=== PATIENT | male | born 1955 | race Caucasian/White ===

== ENCOUNTER → 2016-05-14 | Outpatient (CLI) | payer BC ==
[2016-05-14 11:56] LABS: EKG EKG PERFORMED
[2016-05-14 12:49] LABS: Partial Thromboplastin Time 23.6 sec (22.0-30.0); Prothrombin Time 10.2 sec (9.0-12.0)
[2016-05-14 12:53] LABS: Basophils % (A) 1 %; CH 31.3; CHCM 33.4; Eosinophils # (A) 0.3 k/uL (0-0.7); Eosinophils % (A) 6 %; HCT 42.7 % (39.0-53.0); HDW 2.71; Luc # (Auto) 0.11; Luc % (Auto) 3; Lymphocytes % (A) 24 %; MCH 30.8 pg (25.0-35.0); MCHC 32.7 g/dL (31.0-37.0); MCV 94.1 fL (80.0-100.0); Mean Platelet Volume 7.3; Monocytes # (A) 0.4 k/uL (0-1.0); Monocytes % (A) 9 %; Neutrophils # (A) 2.4 k/uL (1.3-7.7); Neutrophils % (A) 58 %; RBC 4.54 m/uL (4.30-5.90); RDW 13.1 % (11.5-15.5); WBC 4.2 k/uL (3.8-10.6); WBC (Perox) 4.52
[2016-05-14 13:00] LABS: ALT 41 U/L (21-72); AST 24 U/L (17-59); Alkaline Phosphatase 86 U/L (38-126); Anion Gap 7 mmol/L; Blood Urea Nitrogen 14 mg/dL (9-20); Calcium 9.1 mg/dL (8.4-10.2); Carbon Dioxide 31 mmol/L (22-30); Chloride 100 mmol/L (98-107); Glucose 102 mg/dL (74-99); Non-African American GFR(MDRD) >60 (>60 ml/min/1.73 sqM); Potassium 4.4 mmol/L (3.5-5.1); Sodium 138 mmol/L (137-145); Total Bilirubin 0.6 mg/dL (0.2-1.3); Total Protein 6.6 g/dL (6.3-8.2)
[2016-05-14 14:03] LABS: Appearance,Urine Clear (Clear); Bilirubin,Urine Negative (Negative); Glucose,Urine (UA) Negative (Negative); Ketones,Urine Negative (Negative); Leukocyte Esterase,Urine Negative (Negative); Nitrite,Urine Negative (Negative); PH, Urine 7.5 (5.0-8.0); Protein,Urine Negative (Negative); Specific Gravity,Urine 1.012 (1.001-1.035); UA Billing (MACRO vs. MICRO) CHEM; Urobilinogen,Urine <2.0 mg/dL (<2.0)
== END | disposition home or self-care (01) ==
LOC: LABPAT 11:28
PROVIDERS: ATTEND Orthopaedic Surgery
DX: Z01.810 Encounter for preprocedural cardiovascular examination (principal); Z01.812 Encounter for preprocedural laboratory examination
CPT/HCPCS: 80053; 81003; 85025; 85610; 85730; 87070; 93005

== ENCOUNTER 2016-05-27 06:31 | Inpatient (IN) | payer BC ==
[~2016-05-27 06:31] MED LIST: ACETAMINOPHEN TAB 500 MG TAB PO ONE; FAMOTIDINE 20 MG/2 ML VIAL IV PRN; HYDROmorphone 1 MG/ML 1 ML SYRINGE IVP PRN; LACTATED RINGERS 1,000 ML IV SCH; LIDOCAINE 1% 20 ML VIAL (10MG/ML) FOR IV START INTRADERMA PRN; MELOXICAM 7.5 MG TAB PO ONE; MIDAZOLAM 2 MG/2 ML VIAL IV PRN; ONDANSETRON 4 MG/2 ML VIAL IVP ONE; TRANEXAMIC ACID 1,000 MG in SODIUM CHLORIDE 0.9% 100 ML IVPB ONE; ceFAZolin 2 GM in SODIUM CHLORIDE 0.9% 100 ML IVPB ONE
[2016-05-27 06:52] VITALS: RESP 16
[2016-05-27] MEDS ORDERED: LIDOCAINE 1% 20 ML VIAL (10MG/ML) FOR IV START INTRADERMA ONE (07:07)
[2016-05-27] MEDS ORDERED: GLYCOPYRROLATE 0.2 MG/ML 2 ML VIAL ONE (07:38)
[2016-05-27] MEDS ORDERED: PHENYLEPHRINE-0.9% NACL SYG 1 MG/10 ML SYRINGE ONE (07:38)
[2016-05-27] MEDS ORDERED: TRANEXAMIC ACID 1,000 MG/10 ML VIAL ONE (07:38)
[2016-05-27] MEDS ORDERED: MIDAZOLAM 2 MG/2 ML VIAL ONE (07:38)
[2016-05-27] MEDS ORDERED: SODIUM CHLORIDE 0.9% 100 ML BAG ONE (07:38)
[2016-05-27] MEDS ORDERED: fentaNYL (PF) 50 MCG/ML 2 ML AMP ONE (07:38)
[2016-05-27] MEDS ORDERED: LIDOCAINE 1% INJ 10MG/ML (20 ML MDV) ONE (07:38)
[2016-05-27] MEDS ORDERED: ceFAZolin 3,000 MG in SODIUM CHLORIDE 0.9% IRRIGATIO 3,000 ML IRRIGATION ONE (07:38)
[2016-05-27] MEDS ORDERED: PROPOFOL 10 MG/ML 20 ML VIAL IV ONE (07:38)
[2016-05-27] MEDS ORDERED: KETAMINE 10 MG/ML 20 ML VIAL ONE (07:38)
[2016-05-27] MEDS: ROPIVACAINE 246.25 MG, EPINEPHrine 0.5 MG, KETOROLAC 30 MG, cloNIDine HCL/PF 80 MCG, WA... MISCELLANE STA ×10 (08:08→09:00)
[2016-05-27] MEDS ORDERED: LACTATED RINGERS 1,000 ML IV ONE (08:39)
--- NOTE | 2016-05-27 09:47 | P.OP ---
Date of Procedure: 05/27/16 Procedure(s) Performed: PREOPERATIVE DIAGNOSIS: 1. Right knee severe osteoarthritis with genu varum 2. Left knee severe osteoarthritis with knee effusion POSTOPERATIVE DIAGNOSIS: 1. Right knee severe osteoarthritis with genu varum 2. Left knee severe osteoarthritis with knee effusion OPERATION: 1. Right knee cemented total replacement arthroplasty. 2. Left knee aspiration of joint fluid (88 mL clear yellow) ANESTHESIA: Spinal ESTIMATED BLOOD LOSS: 100 ml. DIVIDEND DEPOSIT ENTRY CLERK: Nati Haney PA-C (assistance with: patient positioning, retraction, exposure, hemostasis, leg positioning, implantation, irrigation, closure, dressing) COMPLICATIONS: None apparent. COMPONENTS IMPLANTED: Persona system from [employer] INDICATIONS: Mr. Rodriguez is a 61-year-old male with a history of bilateral knee osteoarthritis. The patient's knees are end-stage, and conservative management has failed. The operation of right knee replacement and aspiration of the left knee has been discussed at length in the office, as well as potential risks and complications. These are inclusive of, but not limited to: bleeding, infection, scarring, discomfort, blood vessel and nerve damage, need for further surgery, failure to relieve symptoms, persistence, recurrence, or worsening of problems, loosening, dislocation, wear, blood clot, pulmonary embolism, , gait dysfunction, stiffness, and other risks as discussed in the office. The patient elects to proceed and the consent form has been signed. PROCEDURE: The patient was taken to the operating room and positioned on the operating room table in the supine position. Anesthesia was initiated. Care was taken to make sure that all pressure points were adequately padded. The operative lower extremity was prepped and draped in the usual aseptic fashion using ChloraPrep. Ioban drape was used for the case and the patient received intravenous antibiotics within one hour of the incision. A pneumotourniquet and leg junior were used for the case. The limb was exsanguinated with an Esmarch bandage and the tourniquet was inflated to 350 mmHg. Time-out was called confirming the patient's identity, side, procedure and administration of antibiotics. The incision was then created midline directly over the knee, carried down through skin and into the subcutaneous tissues and down to fascia. Full thickness subcutaneous medial flap was developed. Medial parapatellar arthrotomy was performed and the interior of the knee was inspected. There was end-stage osteoarthritis of the knee with a mild to moderate genu varum type deformity. The fat pad was excised and proximal medial release on the tibia was completed using meticulous dissection and a curved osteotome. The anterior cruciate ligament was taken down. Note was made of significant attrition of the anterior and significant degenerative appearance of the posterior cruciate ligaments. The exposure was excellent. The knee was flexed 90 degrees and the patella was everted. A spot was chosen on the femur approximately 1 cm anterior to the posterior cruciate ligament insertion and an intramedullary hole was created within the femur. The intramedullary guide was then set to 5 degrees of valgus. The distal cutting block was attached and pinned into position. An appropriate amount of distal femoral resection was set. The oscillating saw was then used to make the distal femoral cut. This cut was confirmed to be flat with the flat end of an osteotome. The retractors were placed around the tibia and the tibial surface was addressed. The angle and depth of resection was adjusted using an extramedullary cutting guide. The guide had a built-in 3 degree posterior slope cut. Once the cutting guide was adjusted appropriately and in line with the axis of the tibia and confirmed to be in good position in relation to the second metatarsal and transmalleolar axis, the tibial cut was then created with protection of the posterior neurovascular structures and the collateral ligaments. The tibial cut surface was removed and sized. Femoral sizing was then accomplished using anterior referencing. Care was taken to analyze the posterior condyles for signs of deficiency or severe wear, and adjustments to the guide were made, as appropriate. 3 degree external rotation pins were placed. The cutting jig for the femur was applied to these pins. The planned cuts were further analyzed prior to performing them with the oscillating saw. No femoral notching was produced. Bone fragments were removed and the cut surfaces were finished, as necessary, with a reciprocating saw. Spacer block technique was then used to confirm that the flexion and extension gaps were equal. Soft tissue releases and adjustment of the tibial and/or femoral cuts were made, as necessary, until the gaps were equal. This included release of the posterior cruciate ligament, which was tight in this patient and , if left unreleased, would have resulted in poor kinematics and possibly early loosening. The femur was then further finished for a posterior cruciate ligament substituting component. Patellar resurfacing was performed using a reamer. The size of the required patellar component was estimated and the patellar surface was then reamed down to a residual thickness which would recreate the [place] thickness with the component. The placement of the patellar component was influenced by the degree of patellar subluxation, if any, noted on the preoperative x-rays. Prior to placing trial components, anesthetic solution consisting of ropivicaine with epinephrine, ketorolac, and clonidine was injected carefully and methodically in a grid pattern using aspiration technique into the soft tissue around the knee circumferentially, starting with the deeper tissues first and progressing to fascia, and then finally the skin/subcutaneous tissue. Particular care was taken when injecting the posterior capsule. The trial components were inserted. The tibial tray was allowed to self center and the patella was noted to track very well. The position of the tibial component was marked and the tibia was then finished for a stemmed tibial component. Cement was mixed on the back table and applied to the final components. Trial components were removed and the cut surfaces of the bone were pulse lavaged thoroughly and dried. Cement was then applied to the tibial surface and pressurized into the surface using finger pressurization technique. The tibial component was then applied and excess cement was removed after it was impacted securely and noted to be flush with the cut surface. In similar fashion, the cement was applied to the cut femoral surface, pressurized in using finger pressurization and the component was impacted into place. Excess cement was removed. The polyethylene spacer was then implanted and locked into position. The patellar component was then applied in similar technique and a patellar clamp was used to hold the patella in place as the cement hardened. Once the cement had fully hardened, the knee was reinspected. Any other cement extrusion was removed and final kinematic testing showed range of motion from 0 to 130 degrees with excellent stability, both medially and laterally and appropriate alignment of the leg. Patellar tracking was excellent. The knee was then thoroughly pulse lavaged with normal saline. The tourniquet was deflated and hemostasis was obtained with electrocautery and IV tranexamic acid, 1 g given at the start of the operation and 1 g at the start of closure. Closure was with #2 Ethibond in the fascia/capsule and supplemented with #2 Quill, 2-0 Vicryl suture was used for the subcutaneous tissues and 3-0 Quill for the skin. Dermabond/Steri-Strips were then applied. A lightly compressive dressing was applied using Webril and an Noah wrap. Aspiration of the left knee was then accomplished easily using a lateral approach with an 18-gauge needle under sterile conditions with a Betadine prep. 88 mL of clear yellow fluid was removed. Band-Aid was applied to the puncture site. [facility] and taken to the recovery room in stable condition. Sponge and needle counts were correct.
[2016-05-27] MEDS ORDERED: NALOXONE 0.4 MG/ML 1 ML VIAL IV PRN (09:53)
[2016-05-27] MEDS ORDERED: HYDROmorphone 1 MG/ML 1 ML SYRINGE IVP PRN ×2 (09:53)
[2016-05-27] MEDS ORDERED: ONDANSETRON 4 MG/2 ML VIAL IVP PRN (09:53)
[2016-05-27] MEDS ORDERED: HYDROcodone/APAP 5-325MG 1 EACH TAB PO PRN (09:53)
[2016-05-27] MEDS ORDERED: TEMAZEPAM 15 MG CAP PO PRN (09:53)
[2016-05-27] MEDS ORDERED: hydrOXYzine PAMOATE 25 MG CAP PO PRN (09:53)
[2016-05-27] MEDS ORDERED: ACETAMINOPHEN TAB 325 MG TAB PO PRN (09:53)
[2016-05-27] MEDS ORDERED: BISACODYL 10 MG SUPP RECTAL PRN (09:53)
[2016-05-27] MEDS ORDERED: NA PHOS,M-B/NA PHOS,DI-BA 133 ML ENEMA RECTAL PRN (09:53)
[2016-05-27] MEDS ORDERED: MAGNESIUM HYDROXIDE 2,400 MG/10 ML CUP PO PRN (09:53)
--- NOTE | 2016-05-27 10:20 | XR ---
EXAMINATION TYPE: XR knee limited RT DATE OF EXAM: 05/27/2016 10:13 AM COMPARISON: NONE HISTORY: Post op FINDINGS: There is a prosthetic knee in near anatomic alignment. There is soft tissue edema and emphysema. IMPRESSION: 1. Postoperative change. Appears in near-anatomic alignment
[2016-05-27 11:08] VITALS: BMI 29.6
[2016-05-27] MEDS: HYDROmorphone 1 MG/ML 1 ML SYRINGE IVP PRN ×2 (11:27→15:04)
[2016-05-27] MEDS ORDERED: BACLOFEN 10 MG TAB PO PRN (14:22)
[2016-05-27] MEDS: HYDROcodone/APAP 5-325MG 1 EACH TAB PO PRN ×2 (17:28→23:51)
[2016-05-27] MEDS: ceFAZolin 2 GM in SODIUM CHLORIDE 0.9% 100 ML IVPB SCH (17:29)
[2016-05-27] MEDS: LACTATED RINGERS 1,000 ML IV SCH ×2 (17:34)
--- NOTE | 2016-05-27 18:41 | CONS ---
DATE OF CONSULTATION: REASON FOR CONSULTATION: Postoperative complication management and recommendations regarding antihypertensive medications. Patient is a very pleasant 61-year-old gentleman admitted for right knee arthroplasty right knee arthroplasty and patient is clinically doing well postoperatively and patient does have history of hypertension, does use amlodipine at home. Patient's blood pressure was a bit elevated and is pain is well controlled. Patient denied fever, chills. Patient did not pass gas and did not move his bowel yet and denied any cough, runny nose. Denied any dysuria, nausea, vomiting. Patient does not have any, I do not see any Calwdell catheter. REVIEW OF SYSTEMS: CONSTITUTIONAL: No fever, no malaise, no fatigue. HEENT: No recent visual problems or hearing problems. Denied any sore throat. CARDIOVASCULAR: No chest pain, orthopnea, PND, no palpitations, no syncope. PULMONARY: No shortness of breath, no cough, no hemoptysis. GASTROINTESTINAL: No diarrhea, no nausea, no vomiting, no abdominal pain. Normoactive bowel sounds. NEUROLOGICAL: No headaches, no weakness, no numbness. HEMATOLOGICAL: Denies any bleeding or petechiae. GENITOURINARY: Denies any burning micturition, frequency, or urgency. MUSCULOSKELETAL/RHEUMATOLOGICAL: Denies any joint pain, swelling, or any muscle pain. ENDOCRINE: Denies any polyuria or polydipsia. The rest of the 14 point review of systems is negative. PAST MEDICAL HISTORY: Hypertension, gastroesophageal junction disease, orthopedic surgery in the past. Patient right now underwent right knee arthroplasty. SOCIAL HISTORY: Former smoker. Quit smoking in 2008, used to smoke 2 packs per day. Denied abuse or drug abuse. FAMILY HISTORY: Significant for cancer. Home medications include: 1. Amlodipine. 2. Baclofen. 3. Acetaminophen. 4. Senna. 5. Hydrocodone acetaminophen. PHYSICAL EXAM: Temperature 98.1, pulse of 77, respiratory rate of 16, blood pressure is 141/72, saturating at 94% on room air. GENERAL: The patient is alert and oriented x3, not in any acute distress. Well developed, well nourished. HEENT: Patient does have abscess in the peritonsillar area and redness in the posterior pharyngeal area. Pupils are round and equally reacting to light. No ear discharge. No nasal discharge. CARDIOVASCULAR: S1 and S2 present. No murmurs, rubs, or gallops. PULMONARY: Chest is clear to auscultation, no wheezing or crackles. ABDOMEN: Soft, nontender, nondistended, normoactive bowel sounds. No palpable organomegaly. MUSCULOSKELETAL: No joint swelling or deformity. EXTREMITIES: No cyanosis, clubbing, or pedal edema. NEUROLOGICAL: Gross neurological examination did not reveal any focal deficits. SKIN: No rashes . ASSESSMENT AND PLAN: 1. Right knee arthroplasty postoperative day zero, and encourage incentive spirometry, pain management and deep venous thrombosis prophylaxis as per primary service. 2. Hypertension. The patient blood pressures are a bit elevated. The patient is on amlodipine which will be continued. 3. Gastroesophageal reflux disease. Thank you for letting me participate in the patient's care. Patient's primary care physician is Dr. Olmos. CORRY
[2016-05-27] MEDS ORDERED: SENNOSIDES-DOCUSATE SODIUM 1 EACH TAB PO SCH (21:00)
[2016-05-27] MEDS: ASPIRIN 325 MG TAB PO SCH (21:58)
[2016-05-28] MEDS: HYDROmorphone 1 MG/ML 1 ML SYRINGE IVP PRN ×2 (02:17→08:13)
[2016-05-28] MEDS: ceFAZolin 2 GM in SODIUM CHLORIDE 0.9% 100 ML IVPB SCH (02:19)
[2016-05-28] MEDS: HYDROcodone/APAP 5-325MG 1 EACH TAB PO PRN (05:03)
[2016-05-28] MEDS ORDERED: PANTOPRAZOLE 40 MG TABLET PO SCH (07:30)
[2016-05-28] MEDS: ASPIRIN 325 MG TAB PO SCH (08:11)
[2016-05-28 08:24] LABS: Basophils % (A) 0 %; CH 31.2; CHCM 33.2; Eosinophils # (A) 0.3 k/uL (0-0.7); Eosinophils % (A) 5 %; HCT 33.4 % (39.0-53.0); Luc # (Auto) 0.21; Luc % (Auto) 4; Lymphocytes # (A) 0.8 k/uL (1.0-4.8); Lymphocytes % (A) 16 %; MCH 31.3 pg (25.0-35.0); MCHC 33.1 g/dL (31.0-37.0); MCV 94.5 fL (80.0-100.0); Mean Platelet Volume 6.6; Monocytes # (A) 0.6 k/uL (0-1.0); Monocytes % (A) 11 %; Neutrophils # (A) 3.4 k/uL (1.3-7.7); Neutrophils % (A) 64 %; RBC 3.53 m/uL (4.30-5.90); RDW 13.7 % (11.5-15.5); WBC 5.3 k/uL (3.8-10.6); WBC (Perox) 6.08
[2016-05-28] MEDS: LACTATED RINGERS 1,000 ML IV SCH (08:38)
[2016-05-28] MEDS ORDERED: amLODIPine 5 MG TAB PO SCH (09:00)
[2016-05-28] MEDS ORDERED: MELOXICAM 7.5 MG TAB PO SCH (09:00)
--- NOTE | 2016-05-28 09:17 | P.DS ---
Providers Date of admission: 05/27/16 06:31 Expected date of discharge: 05/28/16 Attending physician: Haresh Colbert Consults: 05/27/16 09:53 Consult Physician Routine Consulting Provider: Lindsey Victor Consult Reason/Comments: medical management Do you want consulting provider notified?: Yes Primary care physician: Guicho Olmos - Discharge Diagnosis(es) (1) Osteoarthritis of right knee Current Visit: Yes Status: Acute (2) Status post right knee replacement Current Visit: Yes Status: Acute Hospital Course: This is a pleasant 61-year-old male last seen in our office with complaints of right knee pain. Patient has known history of degenerative arthritis of the right knee and presented to discuss options. After discussion and consideration , patient elected to proceed with a total knee arthroplasty of the right knee. The patient was seen preoperatively and medically cleared for surgery by Dr. Olmos. The patient was admitted to [facility] and underwent right total knee arthroplasty on 05/27/[address] Colbert. The procedure was performed without complications or sequelae. The patient has done well postoperatively. The patient was seen and evaluated at bedside today and denies any new complaints. Pain is reasonably controlled. Dressing is clean dry and intact. Incision looks fine with no erythema or active drainage. Calf is soft and nontender. The patient has full foot and ankle motion without difficulty. Patient's right lower extremity is neurovascular intact. Patient is orthopedically stable for discharge to home today. Pertinent Studies: Laboratory Tests 05/28/16 07:41 WBC 5.3 RBC 3.53 L Hgb 11.0 L D Hct 33.4 L Patient Condition at Discharge: Stable Plan - Discharge Summary New Discharge Prescriptions: Aspirin 325 mg PO BID #120 tab HYDROcodone/APAP 5-325MG [Agate 5] 1 - 2 each PO Q4-6H PRN #90 tab PRN Reason: Pain Sennosides-Docusate Sodium [Senokot-S] 1 tab PO BID #60 tablet Discharge Medication List Acetaminophen Tab [Tylenol Tab] 650 mg PO Q4H PRN 05/21/16 [History] Baclofen 10 mg PO HS PRN 05/21/16 [History] Omeprazole 20 mg PO DAILY 05/21/16 [History] amLODIPine [Norvasc] 5 mg PO DAILY 05/21/16 [History] Aspirin 325 mg PO BID #120 tab 05/27/16 [Rx] HYDROcodone/APAP 5-325MG [Agate 5] 1 - 2 each PO Q4-6H PRN #90 tab 05/27/16 [Rx] Sennosides-Docusate Sodium [Senokot-S] 1 tab PO BID #60 tablet 05/27/16 [Rx] Follow up Appointment(s)/Referral(s): Nati Haney, PAC [PHYSICIAN SHOW OPERATIONS SUPERVISOR] - 2 Weeks Ambulatory/Diagnostic Orders: Continuous Passive Motion (CPM) Machine [DME.AMB1] Time Frame: 3 Weeks, Facility : [facility], Location: Case Management Activity/Diet/Wound Care/Special Instructions: May bear wt as tolerated with walker. CPM 5-6 hours daily. May shower if no drainage from incision. [facility] - Discharge Disposition: HOME WITH HOME HEALTH SERVICES
[2016-05-28] MEDS ORDERED: HYDROcodone/APAP 7.5-325MG 1 EACH TAB PO PRN ×2 (10:12)
[2016-05-28 10:15] VITALS: BP 130/81; PULSE 103; TEMP 98.5
[2016-05-28] MEDS ORDERED: MULTIVITAMINS, THERA 1 EACH TAB PO SCH (12:00)
--- NOTE | 2016-05-28 13:12 | P.PN ---
Subjective Date of service 05/28/2016 Personal being dictated for Dr. Hills Interval history: This a 61-year-old gentleman admitted with right knee osteoarthritis, status post right knee arthroplasty and multiple other medical issues. Complained of uncontrolled pain earlier, pain med regime adjusted as per orthopedics and currently stating pain controlled. Ambulating in hallway, tolerating increase in activity well. Positive diet intake with no nausea vomiting or diarrhea. Positive bowel movement.Maintaining O2 sats of 93% on room air and re-instructed on incentive spirometer. Afebrile. Vital signs stable. Denies chest pain, palpitations or increasing shortness of breath. Objective - Vital Signs Vital signs: Vital Signs Temp 98.5 F 05/28/16 07:00 Pulse 103 H 05/28/16 07:00 Resp 16 05/28/16 07:00 BP 130/81 05/28/16 07:00 Pulse Ox 93 L 05/28/16 07:00 Intake & Output 05/27/16 05/28/16 05/28/16 18:59 06:59 18:59 Intake Total 2001 1200 Output Total 50 Balance 1951 1200 Weight 88.451 kg Intake: IV 1602 1200 Lactated Ringers 1,000 ml 1200 @ 100 mls/hr IV .Q10H TRISTA Rx#:[id number] Oral 400 Output: Estimated Blood Loss 50 Other: Voiding Method Toilet Toilet Toilet Urinal Urinal # Voids 2 1 - Exam PHYSICAL EXAM: VITAL SIGNS: As above GENERAL: [Sitting up in chair, no acute distress] HEENT: [Pupils equal conjunctiva normal.] NECK: [Supple, no JVD] RESPIRATORY EFFORT:[Normal] LUNGS: [Essentially clear, bilateral bases diminished] CARDIOVASCULAR[regular S1 and S2, no edema] GI: [Abdomen soft, nontender, positive bowel sounds.] PSYCH: [Alert and oriented -3, mood and affect normal. NEURO: No focal deficits, moves all 4 extremities, strength and sensation grossly intact - Labs CBC & Chem 7: 05/28/16 07:41 Labs: Abnormal Lab Results - Last 24 Hours (Table) 05/28/16 Range/Units 07:41 RBC 3.53 L (4.30-5.90) m/uL Hgb 11.0 L D (13.0-17.5) gm/dL Hct 33.4 L (39.0-53.0) % Lymphocytes # 0.8 L (1.0-4.8) k/uL Assessment and Plan Plan: 1. [Right knee osteoarthritis, status post right knee arthroplasty]. 2. [Hypertension]. 3. [Gastroesophageal reflux disease]. 4. [Atelectasis]. 5. [History of nicotine abuse]. Plan: Continue on current medication regime ,monitoring and symptomatic treatment. Pain management and DVT prophylaxis as per orthopedics. Discharge planning in progress as per orthopedics. Aggressive pulmonary toileting .Patient instructed on incentive spirometer instructions for home. Follow up PCP in 1 week. The impression and plan of care has been dictated as directed. : I performed a H&P examination of this patient and discussed the same with the dictator. I agree with the dictator's note. Any additional findings/opinions/ etc. will be noted.
== END 2016-05-28 15:00 | disposition home health service (06) | DRG 470 ==
LOC: 2ORMAIN 06:31 → 3SUR 09:44
PROVIDERS: ADMIT Orthopaedic Surgery; ATTEND Orthopaedic Surgery
PROC: 0S9D3ZX Drainage of Left Knee Joint, Percutaneous Approach, Diagnostic (ICD-10-PCS; 2016-05-27)
PROC: 0SRC0J9 Replacement of Right Knee Joint with Synthetic Substitute, Cemented, Open Approach (ICD-10-PCS; principal; 2016-05-27 08:00)
DX: M17.0 Bilateral primary osteoarthritis of knee (principal); I10 Essential (primary) hypertension; M25.462 Effusion, left knee; K21.9 Gastro-esophageal reflux disease without esophagitis; M21.161 Varus deformity, not elsewhere classified, right knee; Z87.891 Personal history of nicotine dependence; Z79.899 Other long term (current) drug therapy; Z79.891 Long term (current) use of opiate analgesic
CPT/HCPCS: 85025; 88300

== ENCOUNTER → 2016-06-14 | Outpatient (CLI) | payer BC ==
--- NOTE | 2016-06-14 14:37 | US ---
EXAMINATION TYPE: US venous doppler duplex LE RT DATE OF EXAM: 06/14/2016 2:21 PM COMPARISON: NONE CLINICAL HISTORY: M25.561 PAIN IN RT KNEE, M17.11 UNI OSTEOARTHRITIS,Z47.1. Swelling and pain no h/o dvt SIDE PERFORMED: Right VESSELS IMAGED: External Iliac Vein (EIV) Common Femoral Vein Deep Femoral Vein Greater Saphenous Vein * Femoral Vein Popliteal Vein Small Saphenous Vein * Proximal Calf Veins (* superficial vessels) IMPRESSION: tech impression to office @ 2:25 No evidence for luminal thrombus. Normal compressibility and augmentation lobe. IMPRESSION: No evidence for DVT.
== END | disposition home or self-care (01) ==
LOC: RADUSWWP 14:05
PROVIDERS: ATTEND Orthopaedic Surgery
DX: I80.9 Phlebitis and thrombophlebitis of unspecified site (principal); M17.11 Unilateral primary osteoarthritis, right knee; Z47.1 Aftercare following joint replacement surgery; Z96.651 Presence of right artificial knee joint

== ENCOUNTER 2019-08-04 19:58 | Emergency (ER) | payer MEDICARE ==
[2019-08-04] MEDS ORDERED: ALBUTEROL HFA INHALER INHALATION STA (20:26)
[2019-08-04] MEDS ORDERED: SODIUM CHLORIDE 0.9% 1,000 ML IV STA ×2 (20:26)
[2019-08-04] MEDS ORDERED: methylPREDNISolone SOD SUCCI 125 MG/2 ML VIAL IV STA (20:26)
--- NOTE | 2019-08-04 20:31 | ED ---
General Adult HPI - General Chief complaint: Shortness of Breath Stated complaint: JD Time Seen by Provider: 08/04/19 20:20 Source: patient, RN notes reviewed, old records reviewed Mode of arrival: ambulatory Limitations: no limitations - History of Present Illness Initial comments: Patient is a 64-year-old male presents to the emergency department today for evaluation with difficulty in breathing shortness of breath and non productive cough for 4 days. She reports that he's had progressive dyspnea over the past few months off and on. Patient states that he is not on any current antibiotics or steroids. He denies any history of exposure to cope with Patient. He states he does see a dentist but cannot remember who he sees. He does report that he's been doing breathing treatments at home. Patient states that he's had no chest pain at this time. - Related Data Home Medications Medication Instructions Recorded Confirmed Acetaminophen Tab [Tylenol] 650 mg PO Q4H PRN 05/21/16 05/27/16 Baclofen 10 mg PO HS PRN 05/21/16 05/27/16 Omeprazole 20 mg PO DAILY 05/21/16 05/27/16 amLODIPine [Norvasc] 5 mg PO DAILY 05/21/16 05/27/16 Previous Rx's Medication Instructions Recorded Aspirin 325 mg PO BID #120 tab 05/27/16 Sennosides-Docusate Sodium 1 tab PO BID #60 tablet 05/27/16 [Senokot-S] HYDROcodone/APAP 7.5-325MG [Anson 1 - 2 each PO Q6HR PRN #90 tab 05/28/16 7.5-325] Multivitamins, Thera [Multivitamin 1 each PO DAILY@1200 #30 tab 05/28/16 (formulary)] Azithromycin [Zithromax Z-pack] 250 mg PO DIRECTED #6 tab 08/04/19 predniSONE 50 mg PO DAILY #5 tab 08/04/19 Allergies Allergy/AdvReac Type Severity Reaction Status Date / Time No Known Allergies Allergy Verified 08/04/19 20:05 Review of Systems ROS Statement: Those systems with pertinent positive or pertinent negative responses have been documented in the HPI. ROS Other: All systems not noted in ROS Statement are negative. Past Medical History Past Medical History: GERD/Reflux, Hypertension History of Any Multi-Drug Resistant Organisms: None Reported Past Surgical History: Orthopedic Surgery Additional Past Surgical History / Comment(s): RIGHT KNEE ARTHROSCOPIC, RIGHT KNEE ARTHROTOMY Past Anesthesia/Blood Transfusion Reactions: No Reported Reaction Past Psychological History: No Psychological Hx Reported Smoking Status: Former smoker Past Alcohol Use History: Daily Past Drug Use History: None Reported - Past Family History Mother Family Medical History: Cancer Father Family Medical History: Cancer General Exam - General Exam Comments Initial Comments: Pleasant 64 year old male, no distress. Limitations: no limitations General appearance: alert, in no apparent distress Head exam: Present: atraumatic, normocephalic, normal inspection Eye exam: Present: normal appearance, PERRL, EOMI. Absent: scleral icterus, conjunctival injection, periorbital swelling ENT exam: Present: normal exam, mucous membranes moist Neck exam: Present: normal inspection. Absent: tenderness, meningismus, lymphadenopathy Respiratory exam: Present: wheezes. Absent: normal lung sounds bilaterally, respiratory distress, rales, rhonchi, stridor Cardiovascular Exam: Present: regular rate, normal rhythm, normal heart sounds. Absent: systolic murmur, diastolic murmur, rubs, gallop, clicks GI/Abdominal exam: Present: soft, normal bowel sounds. Absent: distended, tenderness, guarding, rebound, rigid Psychiatric exam: Present: normal affect, normal mood Skin exam: Present: warm, dry, intact, normal color. Absent: rash Course Vital Signs 08/04/19 08/04/19 08/04/19 20:01 21:20 22:38 Temperature 98.1 F 98.2 F Pulse Rate 99 96 94 Respiratory 22 20 15 Rate Blood Pressure 149/84 137/89 133/81 O2 Sat by Pulse 93 L 98 97 Oximetry Medical Decision Making - Medical Decision Making 64 year old male with Hx copd presents with wheezing and cough worsening over the past 4 days. He reports a dry cough. Denies fevers and chest pain. EKG is normal, troponin and COVID test are negative. Patient had wheezing and a was given albuterol and iv soluemedrol. Lactic acid and WBC normal. Patient CXR shows patchy infiltrate for developing pneuomonia in R lung. Discussed treatment with rocephin and Zpak at thsi time, and steriods and continue breathing treatments. Patient and I discussed discharge vs possible admission, and he prefers to follow up with outpatient treatment. Patient is agreeable to treatment plan and return parameters discussed. - Lab Data Result diagrams: 08/04/19 20:20 08/04/19 20:20 Lab Results 08/04/19 08/04/19 08/04/19 Range/Units 20:20 20:20 20:20 WBC 6.7 (3.8-10.6) k/uL RBC 4.77 (4.30-5.90) m/uL Hgb 15.7 (13.0-17.5) gm/dL Hct 48.6 (39.0-53.0) % MCV 101.9 H (80.0-100.0) fL MCH 32.9 (25.0-35.0) pg MCHC 32.3 (31.0-37.0) g/dL RDW 14.1 (11.5-15.5) % Plt Count 261 (150-450) k/uL Neutrophils % 44 % Lymphocytes % 31 % Monocytes % 6 % Eosinophils % 15 % Basophils % 1 % Neutrophils # 3.0 (1.3-7.7) k/uL Lymphocytes # 2.1 (1.0-4.8) k/uL Monocytes # 0.4 (0-1.0) k/uL Eosinophils # 1.0 H (0-0.7) k/uL Basophils # 0.1 (0-0.2) k/uL Macrocytosis Slight PT 9.6 (9.0-12.0) sec INR 0.9 (<1.2) APTT 21.9 L (22.0-30.0) sec Sodium 143 (137-145) mmol/L Potassium 3.9 (3.5-5.1) mmol/L Chloride 103 (98-107) mmol/L Carbon Dioxide 32 H (22-30) mmol/L Anion Gap 8 mmol/L BUN 8 L (9-20) mg/dL Creatinine 0.78 (0.66-1.25) mg/dL Est GFR (CKD-EPI)AfAm >90 (>60 ml/min/1.73 sqM) Est GFR (CKD-EPI)NonAf >90 (>60 ml/min/1.73 sqM) Glucose 104 H (74-99) mg/dL Plasma Lactic Acid Ricardo (0.7-2.0) mmol/L Calcium 9.0 (8.4-10.2) mg/dL Magnesium 1.8 (1.6-2.3) mg/dL Total Bilirubin 0.2 (0.2-1.3) mg/dL AST 67 H (17-59) U/L ALT 69 H (4-49) U/L Alkaline Phosphatase 79 (38-126) U/L Lactate Dehydrogenase 523 (313-618) U/L Troponin I (0.000-0.034) ng/mL C-Reactive Protein <5.0 (<10.0) mg/L Total Protein 7.5 (6.3-8.2) g/dL Albumin 4.4 (3.5-5.0) g/dL Coronavirus (PCR) (Not Detectd) 08/04/19 08/04/19 08/04/19 Range/Units 20:20 20:20 21:00 WBC (3.8-10.6) k/uL RBC (4.30-5.90) m/uL Hgb (13.0-17.5) gm/dL Hct (39.0-53.0) % MCV (80.0-100.0) fL MCH (25.0-35.0) pg MCHC (31.0-37.0) g/dL RDW (11.5-15.5) % Plt Count (150-450) k/uL Neutrophils % % Lymphocytes % % Monocytes % % Eosinophils % % Basophils % % Neutrophils # (1.3-7.7) k/uL Lymphocytes # (1.0-4.8) k/uL Monocytes # (0-1.0) k/uL Eosinophils # (0-0.7) k/uL Basophils # (0-0.2) k/uL Macrocytosis PT (9.0-12.0) sec INR (<1.2) APTT (22.0-30.0) sec Sodium (137-145) mmol/L Potassium (3.5-5.1) mmol/L Chloride (98-107) mmol/L Carbon Dioxide (22-30) mmol/L Anion Gap mmol/L BUN (9-20) mg/dL Creatinine (0.66-1.25) mg/dL Est GFR (CKD-EPI)AfAm (>60 ml/min/1.73 sqM) Est GFR (CKD-EPI)NonAf (>60 ml/min/1.73 sqM) Glucose (74-99) mg/dL Plasma Lactic Acid Ricardo 1.9 (0.7-2.0) mmol/L Calcium (8.4-10.2) mg/dL Magnesium (1.6-2.3) mg/dL Total Bilirubin (0.2-1.3) mg/dL AST (17-59) U/L ALT (4-49) U/L Alkaline Phosphatase (38-126) U/L Lactate Dehydrogenase (313-618) U/L Troponin I <0.012 (0.000-0.034) ng/mL C-Reactive Protein (<10.0) mg/L Total Protein (6.3-8.2) g/dL Albumin (3.5-5.0) g/dL Coronavirus (PCR) Not Detected (Not Detectd) 08/04/19 20:34 Patient has EKG performed at 2014 shows normal sinus rhythm normal EKG. Jugular rate of 94 bpm. Pulse 168 ms. [facility] is 90 ms. QT QTc is 344/4:[address] elevation. - Radiology Data Radiology results: report reviewed X-ray shows right lower lung opacity. Correlate for developing pneumonia. Disposition Clinical Impression: Pneumonia, COPD (chronic obstructive pulmonary disease) Disposition: HOME SELF-CARE Condition: Good Instructions (If sedation given, give patient instructions): COPD (Chronic Obstructive Pulmonary Disease) (ED), Community Acquired Pneumonia (ED) Additional Instructions: Patient advised to take antibiotics as prescribed. Using inhalers and breathing treatments as prescribed as well. Take the entire course of antibiotic and steroid. Recommended close follow-up with primary care physician for recheck in one to 2 days as well as follow-up with dentist. Return to the emergency department if any alarming signs or symptoms occur. Prescriptions: predniSONE 50 mg PO DAILY #5 tab Azithromycin [Zithromax Z-pack] 250 mg PO DIRECTED #6 tab Is patient prescribed a controlled substance at d/c from ED?: No Referrals: Guicho Olmos MD [Primary Care Provider] - 1-2 days Time of Disposition: 22:16
[2019-08-04 21:09] LABS: Basophils # (A) 0.1 k/uL (0-0.2); Basophils % (A) 1 %; Eosinophils % (A) 15 %; HCT 48.6 % (39.0-53.0); HGB 15.7 gm/dL (13.0-17.5); Lymphocytes # (A) 2.1 k/uL (1.0-4.8); Lymphocytes % (A) 31 %; MCH 32.9 pg (25.0-35.0); MCHC 32.3 g/dL (31.0-37.0); MCV 101.9 fL (80.0-100.0); Macrocytosis Slight; Mean Platelet Volume 7.2; Monocytes # (A) 0.4 k/uL (0-1.0); Monocytes % (A) 6 %; Neutrophils % (A) 44 %; Platelet Count 261 k/uL (150-450); RBC 4.77 m/uL (4.30-5.90); RDW 14.1 % (11.5-15.5); WBC 6.7 k/uL (3.8-10.6)
[2019-08-04 21:21] VITALS: TEMP 98.2
[2019-08-04 21:23] LABS: ALT 69 U/L (4-49); AST 67 U/L (17-59); African American GFR (CKD) >90 (>60 ml/min/1.73 sqM); Albumin 4.4 g/dL (3.5-5.0); Alkaline Phosphatase 79 U/L (38-126); Anion Gap 8 mmol/L; Blood Urea Nitrogen 8 mg/dL (9-20); C Reactive Protein <5.0 mg/L (<10.0); Carbon Dioxide 32 mmol/L (22-30); Chloride 103 mmol/L (98-107); Glucose 104 mg/dL (74-99); LDH 523 U/L (313-618); Magnesium 1.8 mg/dL (1.6-2.3); Non-African American GFR(CKD) >90 (>60 ml/min/1.73 sqM); Potassium 3.9 mmol/L (3.5-5.1); Sodium 143 mmol/L (137-145); Total Bilirubin 0.2 mg/dL (0.2-1.3); Total Protein 7.5 g/dL (6.3-8.2)
[2019-08-04 21:24] LABS: INR 0.9 (<1.2); Prothrombin Time 9.6 sec (9.0-12.0)
[2019-08-04 21:26] LABS: Partial Thromboplastin Time 21.9 sec (22.0-30.0)
--- NOTE | 2019-08-04 21:33 | XR ---
EXAMINATION TYPE: XR chest 2V DATE OF EXAM: 08/04/2019 COMPARISON: 03/10/2019 HISTORY: 64 year-old male shortness of breath, difficulty breathing TECHNIQUE: PA and lateral views FINDINGS: Heart normal size. Aorta and pulmonary vasculature within normal limits. Focal opacity right lower roberto ng. No other consolidation or pleural effusion. IMPRESSION: Focal right lower lung opacity. Correlate for developing pneumonia.
[2019-08-04] MEDS ORDERED: cefTRIAXone IN SWFI 1,000 MG/10 ML SYRINGE IVP STA (21:46)
[2019-08-04 22:39] VITALS: BP 133/81; PULSE 94; RESP 15
== END 2019-08-04 22:48 | disposition home or self-care (01) ==
LOC: EC 19:58
DX: Z03.818 Encounter for observation for suspected exposure to other biological agents ruled out (principal); J44.9 Chronic obstructive pulmonary disease, unspecified; J18.9 Pneumonia, unspecified organism; I10 Essential (primary) hypertension; K21.9 Gastro-esophageal reflux disease without esophagitis; Z79.899 Other long term (current) drug therapy; Z87.891 Personal history of nicotine dependence
CPT/HCPCS: 36415; 93005; 80053; 83605; 83615; 83735; 84484; 85025; 85610; 85730; 86140; 87040; 87635; 71046; 99285; 96374; 96375; 96361 ×2; J2930; J0696

== ENCOUNTER → 2021-03-06 | Outpatient (CLI) | payer MEDICARE | END | disposition home or self-care (01) | LOC: LABWHC1 13:21 | PROVIDERS: ATTEND Internal Medicine Interventional Cardiology | DX: E05.90 Thyrotoxicosis, unspecified without thyrotoxic crisis or storm (principal) | CPT/HCPCS: 36415; 84443 ==

== ENCOUNTER 2021-11-16 09:40 | Day surgery (SDC) | payer MEDICARE ==
[2021-11-15 08:59] VITALS: BMI 26.6
[~2021-11-16 09:40] MED LIST changes: -ACETAMINOPHEN TAB 500 MG TAB PO ONE; -FAMOTIDINE 20 MG/2 ML VIAL IV PRN; -HYDROmorphone 1 MG/ML 1 ML SYRINGE IVP PRN; -LIDOCAINE 1% 20 ML VIAL (10MG/ML) FOR IV START INTRADERMA PRN; -MELOXICAM 7.5 MG TAB PO ONE; -MIDAZOLAM 2 MG/2 ML VIAL IV PRN; -ONDANSETRON 4 MG/2 ML VIAL IVP ONE; -TRANEXAMIC ACID 1,000 MG in SODIUM CHLORIDE 0.9% 100 ML IVPB ONE; -ceFAZolin 2 GM in SODIUM CHLORIDE 0.9% 100 ML IVPB ONE
[2021-11-16 10:00] VITALS: TEMP 96.6
[2021-11-16] MEDS ORDERED: LACTATED RINGERS 1,000 ML IV ONE (10:05)
[2021-11-16] MEDS ORDERED: LIDOCAINE 2% INJ 20 MG/ML (2 ML VIAL) ONE (10:55)
[2021-11-16] MEDS ORDERED: PROPOFOL 10 MG/ML 20 ML VIAL IV ONE (10:55)
--- NOTE | 2021-11-16 11:11 | P.PCN ---
Date of Procedure: 11/16/21 Procedure(s) Performed: BRIEF HISTORY: Patient is a 66-year-old pleasant white male scheduled for an elective colonoscopy as a part of positive cologuard> PROCEDURE PERFORMED: Colonoscopy with biopsy. PREOPERATIVE DIAGNOSIS: Positive cologuard. IV sedation per Anesthesia. PROCEDURE: After informed consent was obtained, the patient, was brought into the endoscopy unit. IV sedation was administered by Anesthesia under continuous monitoring. Digital rectal examination was normal. Initially the Olympus CF-160 flexible video colonoscope was then inserted in the rectum, gradually advanced into the cecum without any difficulty. Careful examination was performed as the scope was gradually being withdrawn. Ileocecal valve and the appendiceal orifice were visualized and appeared normal. Prep was excellent. Mucosa of the cecum, ascending colon, transverse colon, descending colon, sigmoid colon, and rectum appeared normal. Scattered sigmoid diverticulosis seen. In the rectum there was a 3 mm polyp that was removed by cold biopsy. Retroflexion was performed in the rectum and no lesions were seen. The patient tolerated the procedure well. IMPRESSION: 3 mm rectal polyp status post cold biopsy Scattered sigmoid diverticulosis. RECOMMENDATIONS: Findings of this examination were discussed with the patient as well as his family. He was advised to follow with the biopsy results. If the biopsy results adenoma he can have a repeat colonoscopy in 5 years.
[2021-11-16 11:16] VITALS: RESP 18
[2021-11-16 11:37] VITALS: BP 133/83; PULSE 89
== END 2021-11-16 11:50 | disposition home or self-care (01) ==
LOC: ORWHC2ENDO 09:40
PROVIDERS: ATTEND Internal Medicine Gastroenterology
DX: D12.8 Benign neoplasm of rectum (principal); K57.30 Diverticulosis of large intestine without perforation or abscess without bleeding; I10 Essential (primary) hypertension; K21.9 Gastro-esophageal reflux disease without esophagitis; M10.9 Gout, unspecified; Z87.891 Personal history of nicotine dependence; Z79.899 Other long term (current) drug therapy; Z80.9 Family history of malignant neoplasm, unspecified
CPT/HCPCS: 88305; 45380; J2704; J2001

== ENCOUNTER → 2021-12-11 | Outpatient (CLI) | payer MEDICARE ==
--- NOTE | 2021-12-11 12:56 | US ---
EXAMINATION TYPE: US venous doppler duplex LE LT DATE OF EXAM: 12/11/2021 12:42 PM COMPARISON: NONE CLINICAL HISTORY: I80.9 PHLEBITIS AND THROMBOPHLEBITIS OF UNSPECIFIE. left ankle swelling and pain, n o h/o dvt SIDE PERFORMED: Left TECHNIQUE: The lower extremity deep venous system is examined utilizing real time linear array sonog pernell with graded compression, doppler sonography and color-flow sonography. VESSELS IMAGED: Common Femoral Vein Deep Femoral Vein Greater Saphenous Vein * Femoral Vein Popliteal Vein Small Saphenous Vein * Proximal Calf Veins (* superficial vessels) Left Leg: Negative for DVT Grayscale, color doppler, spectral doppler imaging performed of the deep veins of the lower extremiti es. There is normal flow, compressibility, vascular waveforms. IMPRESSION: 1. No evidence of deep vein thrombosis of the left lower extremity. 2. Left lower intermediate subcutaneous edema.
== END | disposition home or self-care (01) ==
LOC: RADUSWWP 12:22
PROVIDERS: ATTEND Orthopaedic Surgery
DX: I80.9 Phlebitis and thrombophlebitis of unspecified site (principal); M25.472 Effusion, left ankle

== ENCOUNTER → 2022-07-30 | Outpatient (CLI) | payer MEDICARE ==
--- NOTE | 2022-07-30 22:11 | CTL ---
EXAMINATION TYPE: CT Low Dose Lung DATE OF EXAM ORDERED: 07/30/2022 HISTORY: . Lung cancer screening CT DLP: 73.[address] CTDI: 2.3 mGy Automated exposure control for dose reduction was used. SCREENING VISIT: Initial COMPARISON: TECHNIQUE: Low dose computed tomography scan was performed through the chest at 1 mm thick sections a nd reconstructed images in the coronal plane at [address] DIAGNOSTIC QUALITY: Satisfactory FINDINGS: LUNG NODULES: None. 1. There is a pleural-based 0.5 cm nodule posterior lateral left lung base. Series 4 image 195. LUNGS: COPD: Severity: Mild Fibrosis: Severity: None Lymph nodes: No enlarged lymphadenopathy. There are scattered small shotty lymph nodes within the med iastinum and axilla. Other findings: None RIGHT PLEURAL SPACE: Effusion: None Calcification: None Thickening: None Pneumothorax: None LEFT PLEURAL SPACE: Effusion: None Calcification: None Thickening: None Pneumothorax: None HEART: Heart Size: Normal Coronary calcification: Mild Pericardial effusion: None OTHER FINDINGS: Upper abdomen: Normal Bony thorax: Normal Supraclavicular region: Normal Other: Ascending thoracic aorta at the level the main pulmonary artery measures 3.4 cm. The main pul monary artery at the bifurcation measures 2.7 cm. IMPRESSION: 1. No suspicious changes to suggest primary or metastatic neoplasm. 2. Small posterior lateral pleural-based nodule. Follow-up in 6 months is recommended. FOLLOW UP CT CHEST RECOMMENDATION: Follow-up CT chest in [address] LUNG RAD: Lung-Rad 3 Probably Benign
== END | disposition home or self-care (01) ==
LOC: RADCTMAIN 12:24
PROVIDERS: ATTEND Internal Medicine Critical Care Medicine
DX: Z12.2 Encounter for screening for malignant neoplasm of respiratory organs (principal); R91.1 Solitary pulmonary nodule; Z87.891 Personal history of nicotine dependence
CPT/HCPCS: 71271

== ENCOUNTER → 2023-07-22 | Outpatient (CLI) | payer MEDICARE ==
[2023-07-22 12:52] LABS: African American GFR (CKD) 44 (>60 ml/min/1.73 sqM); Blood Urea Nitrogen 44 mg/dL (9-20); Non-African American GFR(CKD) 38 (>60 ml/min/1.73 sqM)
--- NOTE | 2023-07-22 14:28 | CT ---
EXAMINATION TYPE: CT chest w con DATE OF EXAM: 07/22/2023 COMPARISON: 07/30/2022 HISTORY: Lung nodule. CT DLP: 467.2 mGycm, Automated exposure control for dose reduction was used. CONTRAST: Performed injected with 70 mL of Isovue 300. TECHNIQUE: Axial images were obtained at 5 mm thick sections. Reconstructed images are reviewed on [employer] computer in the coronal plane. FINDINGS: Portion of the thyroid visualized is normal. No suspicious lung nodules or focal infiltrates are present. There is a stable appearance of a small subpleural density measuring 0.5 cm in the posterior lateral left lung. Series 3 image 40. No enlarged mediastinal or hilar adenopathy is evident. The ascending aorta diameter at the level o f the main pulmonary artery is 3.4 cm. The main pulmonary artery diameter at the bifurcation is 2.[address] sections are obtained through the upper abdomen. There is some mild fatty infiltration of liver. IMPRESSION: 1. Stable pleural-based density left lung. Follow-up low-dose CT chest 6 months.
== END | disposition home or self-care (01) ==
LOC: RADCTMAIN 12:21
PROVIDERS: ATTEND Internal Medicine Critical Care Medicine
DX: R91.1 Solitary pulmonary nodule (principal); J98.4 Other disorders of lung
CPT/HCPCS: 82565; 84520; 71260; 36415; Q9967

== ENCOUNTER 2024-03-10 16:03 | Inpatient (IN) | payer MEDICARE ==
[2024-03-10 16:33] LABS: Glucose,Whole Blood 149 mg/dL (70-110)
--- NOTE | 2024-03-10 16:35 | ED ---
General Adult HPI - General Chief complaint: Overdose Stated complaint: Incidental overdose Time Seen by Provider: 03/10/24 16:11 Source: EMS Mode of arrival: EMS Limitations: no limitations - History of Present Illness Initial comments: Dictation was produced using [employer] dictation software. please excuse any grammatical, word or spelling errors. Chief Complaint: 69-year-old male with strokelike symptoms History of Present Illness: Patient 69-year-old male with history of COPD. He was last seen normal at around 7 AM this morning. Somebody did speak with him over the phone approximately 2 to 3 hours prior to arrival. He seemed to be okay then. 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 Furthermore he allegedly got lost. Family went to go check on him he was found to be sonorous in his vehicle. He has no history of stroke. Apparently he took a pill or 2 extra of his baclofen. Family states that his speech is slurred. The ROS documented in this emergency department record has been reviewed and confirmed by me. Those systems with pertinent positive or negative responses have been documented in the HPI. All other systems are other negative and/or noncontributory. - Related Data Home Medications Medication Instructions Recorded Confirmed Baclofen 10 mg PO BID 05/21/16 03/10/24 allopurinoL [Zyloprim] 100 mg PO DAILY 11/15/21 03/10/24 Atorvastatin [Lipitor] 80 mg PO HS 03/10/24 03/10/24 Fluticasone Propion/Salmeterol 1 puff INHALATION RT-BID 03/10/24 03/10/24 [Advair 250-50 Diskus] Isosorbide Mononitrate ER [Imdur] 30 mg PO DAILY 03/10/24 03/10/24 Omeprazole [PriLOSEC] 40 mg PO DAILY PRN 03/10/24 03/10/24 lisinopriL [Zestril] 20 mg PO DAILY 03/10/24 03/10/24 Allergies Allergy/AdvReac Type Severity Reaction Status Date / Time No Known Allergies Allergy Verified 03/10/24 17:48 Review of Systems ROS Statement: Those systems with pertinent positive or pertinent negative responses have been documented in the HPI. ROS Other: All systems not noted in ROS Statement are negative. Past Medical History Past Medical History: GERD/Reflux, Hypertension Additional Past Medical History / Comment(s): GOUT History of Any Multi-Drug Resistant Organisms: None Reported Past Surgical History: Joint Replacement, Orthopedic Surgery Additional Past Surgical History / Comment(s): RIGHT KNEE ARTHROSCOPIC, RIGHT KNEE ARTHROTOMY, RT TKA Past Anesthesia/Blood Transfusion Reactions: No Reported Reaction Past Psychological History: No Psychological Hx Reported Smoking Status: Former smoker Past Alcohol Use History: Occasional Past Drug Use History: None Reported - Past Family History Mother Family Medical History: Cancer Father Family Medical History: Cancer General Exam - General Exam Comments Initial Comments: PHYSICAL EXAM: General Impression: Alert and oriented x3, not in acute distress HEENT: Normocephalic atraumatic, extra-ocular movements intact, pupils equal and reactive to light bilaterally, mucous membranes moist. Cardiovascular: Heart regular rate and rhythm Chest: Able to complete full sentences, no retractions, no tachypnea Abdomen: abdomen soft, non-tender, non-distended, no organomegaly Musculoskeletal: Pulses present and equal in all extremities, no peripheral edema Motor: no focal deficits noted Neurological: Left facial droop, mild dysarthria. No extremity deficit Skin: Intact with no visualized rashes Psych: Normal affect and mood Limitations: no limitations Course Vital Signs 03/10/24 03/10/24 03/10/24 16:04 16:15 16:30 Temperature 97.4 F L Pulse Rate 78 75 79 Respiratory 18 18 18 Rate Blood Pressure 87/57 87/57 87/57 O2 Sat by Pulse 99 99 98 Oximetry 03/10/24 03/10/24 03/10/24 16:41 16:45 16:59 Temperature Pulse Rate 78 79 Respiratory 18 16 18 Rate Blood Pressure 89/54 89/53 83/43 O2 Sat by Pulse 98 92 L 92 L Oximetry 03/10/24 03/10/24 03/10/24 17:00 17:03 17:16 Temperature Pulse Rate 78 73 78 Respiratory 19 18 18 Rate Blood Pressure 83/43 86/55 92/60 O2 Sat by Pulse 92 L 96 96 Oximetry 03/10/24 17:53 Temperature Pulse Rate 68 Respiratory 18 Rate Blood Pressure 135/72 O2 Sat by Pulse 98 Oximetry - Reevaluation(s) Reevaluation #1: 11/27/24 16:34 NIH score of 2 upon arrival. Last known normal was at around 7 AM this morning. At this point risk outweigh the benefits for thrombolytic administration. He did sound fine over the phone but nobody was physically there with him. Patient denies any symptoms at this time. Code stroke paged 03/10/24 16:35 Reevaluation #2: 03/10/24 16:35My EKG interpretation: Ventricular rate 75, sinus rhythm, NE interval 188, QRS 92, QTc 424. No NE prolongation, no QTC prolongation, no ST or T-wave changes noted. Overall, this EKG is unremarkable Reevaluation #3: 03/10/24 17:24Case discussed with stroke neurologist recommend medical m anagement only. Reevaluation #4: 03/10/24 17:50 There are opacities seen on patient's pulmonary imaging raising the suspicion of sepsis secondary to pulmonary source. He does appear to be hypotensive however has a lactic that is less than 2. Patient given 30 cc/kg bolus of IV fluids Reevaluation #5: 03/10/24 17:55 Patient's blood pressure trended after IV fluid bolus with improvement. His map is 70 at 516. Systolic blood pressure is also 92. No indication for IV pressors at this time Procedures - Sepsis Sepsis Focused Exam #1 Time Sepsis Criteria Met: 17:49 Sepsis Focused Exam Date: 03/10/24 Sepsis Focused Exam Time: 17:49 Sepsis Focused Exam Complete: Yes Vital Signs & RN Notes Reviewed: Yes Capillary Refill: < 2 Seconds: Fingers, Toes Peripheral Pulses: Normal: Radial (R), Radial (L), Posterior Tibialis (R), Posterior Tibialis (L), Dorsalis Pedis (R), Dorsalis Pedis (L) Skin Color: Normal for Patient Respiratory Exam: normal lung sounds Cardiovascular Exam: regular rate Medical Decision Making - Medical Decision Making Was pt. sent in by a medical professional or institution (, PA, MACHINE WELT BUTTER, urgent care, hospital, or [facility]...) When possible be specific @ -No Did you speak to anyone other than the patient for history (EMS, parent, family, police, friend...)? What history was obtained from this source @ -No Did you review nursing and triage notes (agree or disagree)? Why? @ -I reviewed and agree with nursing and triage notes Were old charts reviewed (outside hosp., previous admission, EMS record, old EKG, old radiological studies, urgent care reports/EKG's, [facility] records)? Report findings @ -No old charts were reviewed Differential Diagnosis (chest pain, altered mental status, abdominal pain women, abdominal pain men, vaginal bleeding, musculoskeletal, weakness, fever, dyspnea, syncope, headache, dizziness, GI bleed, back pain, seizure, CVA, palpatations, mental health)? @ - Differential CVA: Ischemic stroke, hemorrhagic stroke, brain tumor, atypical migraine, Wernicke's encephalopathy, seizure, multiple sclerosis, meningitis, encephalitis, hypoglycemia, Guillain-Cohen, electrolytes disturbance, myasthenia gravis.... This is not meant to be an all-inclusive list EKG interpreted by me (3pts min.). @ -See above X-rays interpreted by me (1pt min.). @ -Chest x-ray shows midlung airspace opacities CT interpreted by me (1pt min.). @ -CT scan the brain shows no acute processes. CT angiography syllables shows no large vessel occlusion. There does appear to be some incidental findings of lymphadenopathy to the mediastinum and perihilar U/S interpreted by me (1pt. min.). @ -None done What testing was considered but not performed or refused? (CT, X-rays, U/S, labs)? Why? @ -None What meds were considered but not given or refused? Why? @ -None Was smoking cessation discussed for >3mins.? @ -No Were there social determinants of health that impacted care today? How? (Homeles sness, low income, unemployed, alcoholism, drug addiction, transportation, low edu. Level, literacy, decrease access to med. care, nursing home, rehab)? @ -No Was there de-escalation of care discussed even if they declined (Discuss DNR or withdrawal of care, Hospice)? DNR status @ -No What co-morbidities impacted this encounter? (DM, HTN, Smoking, COPD, CAD, Cancer, CVA, ARF, Chemo, Hep., AIDS, mental health diagnosis, sleep apnea, morbid obesity)? @ -COPD Was patient admitted / discharged? Hospital course, mention meds given and route, prescriptions, significant lab abnormalities, going to OR and other pertinent info. @ -69-year-old male came into the emergency department for strokelike symptoms. Vital signs upon arrival showed soft blood pressure of 87/57. Patient well- appearing at the bedside slight lightheadedness. Patient has strokelike symptoms. His NIH score is 2. There is a vague time of onset. Patient not a candidate for thrombolytics. Code stroke paged still. CT brain shows no bleed. CT angiography shows no large vessel occlusion. Stroke neurologist recommended medical management. There was findings of pneumonia during workup. Patient did have some symptoms of cough. Blood pressure improved after 30 cc/kg bolus. Patient no longer hypotensive. His lactic acid level is less than 4. No indication for vasopressors. Patient given antibiotics. Case discussed with hospitalist for admission. Did you discuss the management of the patient with other professionals (professionals i.e. , PA, MACHINE WELT BUTTER, lab, RT, psych nurse, aids social worker, tool and cutter grinder, teacher, grant officer, transplant case manager)? Give summary @ -See above Was critical care preformed (if so, how long)? @ -Yes, 33 minutes Undiagnosed new problem with uncertain prognosis? @ -No Drug Therapy requiring intensive monitoring for toxicity (Heparin, Nitro, Insulin, Cardizem)? @ -No Were any procedures done? @ -No Diagnosis/symptom? Acute, or Chronic, or Acute on Chronic? Uncomplicated (without systemic symptoms) or Complicated (systemic symptoms)? @ -Pneumonia, CVA Side effects of treatment? @ -No Exacerbation, Progression, or Severe Exacerbation? @ -No Poses a threat to life or bodily function? How? (Chest pain, [place], [place], pneumonia, PE, COPD, DKA, ARF, appy, cholecystitis, CVA, Diverticulitis, Homicidal, Suicidal, threat to staff... and all critical care pts) @ -yes - Lab Data Result diagrams: 03/10/24 16:26 03/10/24 16:38 Lab Results 03/10/24 03/10/24 03/10/24 Range/Units 16:26 16:26 16:32 WBC 15.2 H (3.8-10.6) k/uL RBC 3.47 L (4.30-5.90) m/uL Hgb 11.2 L (13.0-17.5) gm/dL Hct 34.2 L (39.0-53.0) % MCV 98.3 (80.0-100.0) fL MCH 32.2 (25.0-35.0) pg MCHC 32.8 (31.0-37.0) g/dL RDW 13.5 (11.5-15.5) % Plt Count 348 (150-450) k/uL MPV 7.0 Neutrophils % 82 % Lymphocytes % 7 % Monocytes % 5 % Eosinophils % 3 % Basophils % 0 % Neutrophils # 12.5 H (1.3-7.7) k/uL Lymphocytes # 1.1 (1.0-4.8) k/uL Monocytes # 0.8 (0-1.0) k/uL Eosinophils # 0.5 (0-0.7) k/uL Basophils # 0.0 (0-0.2) k/uL PT (10.0-12.5) sec INR (<1.2) APTT (22.0-30.0) sec Sodium (137-145) mmol/L Potassium (3.5-5.1) mmol/L Chloride (98-107) mmol/L Carbon Dioxide (22-30) mmol/L Anion Gap mmol/L BUN (9-20) mg/dL Creatinine (0.66-1.25) mg/dL Est GFR (CKD-EPI)AfAm (>60 ml/min/1.73 sqM) Est GFR (CKD-EPI)NonAf (>60 ml/min/1.73 sqM) Glucose (74-99) mg/dL POC Glucose (mg/dL) 149 H (70-110) mg/dL POC Glu Heavy Equipment Operator/Paver ID [place] Plasma Lactic Acid Ricardo 1.2 (0.7-2.0) mmol/L Calcium (8.4-10.2) mg/dL Total Bilirubin (0.2-1.3) mg/dL AST (17-59) U/L ALT (4-49) U/L Alkaline Phosphatase (38-126) U/L Creatine Kinase (55-170) U/L Troponin I (0.000-0.034) ng/mL Total Protein (6.3-8.2) g/dL Albumin (3.5-5.0) g/dL 03/10/24 03/10/24 03/10/24 Range/Units 16:38 16:38 16:38 WBC (3.8-10.6) k/uL RBC (4.30-5.90) m/uL Hgb (13.0-17.5) gm/dL Hct (39.0-53.0) % MCV (80.0-100.0) fL MCH (25.0-35.0) pg MCHC (31.0-37.0) g/dL RDW (11.5-15.5) % Plt Count (150-450) k/uL MPV Neutrophils % % Lymphocytes % % Monocytes % % Eosinophils % % Basophils % % Neutrophils # (1.3-7.7) k/uL Lymphocytes # (1.0-4.8) k/uL Monocytes # (0-1.0) k/uL Eosinophils # (0-0.7) k/uL Basophils # (0-0.2) k/uL PT 10.9 (10.0-12.5) sec INR 1.0 (<1.2) APTT 24.7 (22.0-30.0) sec Sodium 130 L (137-145) mmol/L Potassium 5.6 H (3.5-5.1) mmol/L Chloride 100 (98-107) mmol/L Carbon Dioxide 24 (22-30) mmol/L Anion Gap 6 mmol/L BUN 27 H (9-20) mg/dL Creatinine 1.52 H (0.66-1.25) mg/dL Est GFR (CKD-EPI)AfAm 54 (>60 ml/min/1.73 sqM) Est GFR (CKD-EPI)NonAf 46 (>60 ml/min/1.73 sqM) Glucose 146 H (74-99) mg/dL POC Glucose (mg/dL) (70-110) mg/dL POC Glu Heavy Equipment Operator/Paver ID Plasma Lactic Acid Ricardo (0.7-2.0) mmol/L Calcium 8.2 L (8.4-10.2) mg/dL Total Bilirubin 1.1 (0.2-1.3) mg/dL AST 22 (17-59) U/L ALT 14 (4-49) U/L Alkaline Phosphatase 112 (38-126) U/L Creatine Kinase 38 L (55-170) U/L Troponin I <0.012 (0.000-0.034) ng/mL Total Protein 6.5 (6.3-8.2) g/dL Albumin 3.6 (3.5-5.0) g/dL Disposition Clinical Impression: CVA (cerebral vascular accident), Pneumonia Disposition: ADMITTED IP TO THIS HOSP Condition: Fair Referrals: Anthony Lentz DO [Primary Care Provider] - 1-2 days Decision Time: 18:00
[2024-03-10] MEDS: SODIUM CHLORIDE 0.9% 1,000 ML IV STA ×2 (16:47→18:21)
--- NOTE | 2024-03-10 16:56 | CT ---
EXAMINATION TYPE: CODE STROKE: CT brain wo contr DATE OF EXAM: 03/10/2024 4:49 PM COMPARISON: None. CLINICAL INDICATION: Male, 69 years old with history of Neuro deficit, acute, stroke suspected, Code stroke. Slurred speech. TECHNIQUE: Brain: Axial CT images of the brain were obtained with coronal and sagittal reformats created and rev iewed. Contrast used: None. Oral contrast used: None. CT DLP: 1158.6 mGycm, Automated exposure control for dose reduction was used. FINDINGS: Brain: Extra-axial spaces: No abnormal extra-axial fluid collections. Ventricular system: Within normal limits Cerebral parenchyma: No acute intraparenchymal hemorrhage or mass effect. The nascimento-white junction is well differentiated. Cerebellum: Unremarkable. Mass effect: No evidence of midline shift. Intracranial vasculature: unremarkable Soft tissues: Normal. Calvarium/osseous structures: No depressed skull fracture. Paranasal sinuses and mastoid air cells: Mild scattered paranasal sinus disease. Visualized orbits: Orbital contents are intact. IMPRESSION: No acute intracranial process. [facility], , 03/10/2024 4:54 PM
[2024-03-10 17:04] LABS: Basophils % (A) 0 %; Eosinophils # (A) 0.5 k/uL (0-0.7); Eosinophils % (A) 3 %; HCT 34.2 % (39.0-53.0); HGB 11.2 gm/dL (13.0-17.5); Lymphocytes # (A) 1.1 k/uL (1.0-4.8); Lymphocytes % (A) 7 %; MCH 32.2 pg (25.0-35.0); MCHC 32.8 g/dL (31.0-37.0); MCV 98.3 fL (80.0-100.0); Monocytes # (A) 0.8 k/uL (0-1.0); Monocytes % (A) 5 %; Neutrophils # (A) 12.5 k/uL (1.3-7.7); Neutrophils % (A) 82 %; Platelet Count 348 k/uL (150-450); RBC 3.47 m/uL (4.30-5.90); RDW 13.5 % (11.5-15.5); WBC 15.2 k/uL (3.8-10.6)
[2024-03-10 17:13] LABS: Partial Thromboplastin Time 24.7 sec (22.0-30.0); Prothrombin Time 10.9 sec (10.0-12.5)
[2024-03-10 17:15] LABS: ALT 14 U/L (4-49); AST 22 U/L (17-59); African American GFR (CKD) 54 (>60 ml/min/1.73 sqM); Albumin 3.6 g/dL (3.5-5.0); Alkaline Phosphatase 112 U/L (38-126); Anion Gap 6 mmol/L; Blood Urea Nitrogen 27 mg/dL (9-20); Calcium 8.2 mg/dL (8.4-10.2); Carbon Dioxide 24 mmol/L (22-30); Chloride 100 mmol/L (98-107); Creatine Kinase 38 U/L (55-170); Glucose 146 mg/dL (74-99); Non-African American GFR(CKD) 46 (>60 ml/min/1.73 sqM); Potassium 5.6 mmol/L (3.5-5.1); Sodium 130 mmol/L (137-145); Total Bilirubin 1.1 mg/dL (0.2-1.3); Total Protein 6.5 g/dL (6.3-8.2)
--- NOTE | 2024-03-10 17:23 | XR ---
EXAMINATION TYPE: XR chest 2V DATE OF EXAM: 03/10/2024 4:58 PM COMPARISON: Chest radiographs from 12/02/2021 CLINICAL INDICATION: Male, 69 years old with history of altered mental status; TECHNIQUE: XR chest 2V Frontal and lateral views of the chest. FINDINGS: Lungs/Pleura: Right midlung airspace opacities. There is no evidence of pleural effusion, focal conso lidation, or pneumothorax. Pulmonary vascularity: Unremarkable. Heart/mediastinum: Cardiomediastinal silhouette is unremarkable. Musculoskeletal: No acute osseous pathology. IMPRESSION: Right midlung airspace opacities criteria for pneumonia. [facility], , 03/10/2024 5:21 PM
--- NOTE | 2024-03-10 17:32 | CT ---
EXAMINATION TYPE: CT angio head neck DATE OF EXAM: 03/10/2024 5:03 PM COMPARISON: 03/10/2024. CLINICAL INDICATION: Male, 69 years old with history of Neuro deficit, acute, stroke suspected; PHH, Code stroke. Slurred speech. TECHNIQUE: Axially acquired helical CT angiogram of the head and neck was obtained with contrast. Axi al images are supplemented with 3D reconstructions and MIP images which were post-processed at an in dependent workstation. NASCET criteria used. Contrast used:65 ml mL of Isovue 370 with IV Contrast, Oral contrast used: None. CT DLP: 567.2 mGycm, Automated exposure control for dose reduction was used. FINDINGS: CTA HEAD: No evidence of acute intracranial hemorrhage, mass effect, or midline shift. The ventricles, sulci, a nd cisterns are unremarkable. Vertebral arteries: The vertebral arteries are patent. Vertebral artery dominance: Codominant Basilar artery: The basilar artery is intact. The basilar artery bifurcation is normal. Internal Carotid arteries: The cervical, petrous, cavernous and supraclinoid segments are normal. COLLIN: Patent with no evidence of aneurysm. ACOM: Present without evidence of aneurysm. MCA: Patent with no evidence of aneurysm. DATA COLLECTION TECHNICIAN: Patent with no evidence of aneurysm. PCOM: Hypoplastic bilaterally. Dural sinuses: Patent. CTA NECK: Right Carotid System: The common carotid artery and external carotid artery are patent. The carotid bifurcation demonstrate s no evidence of hemodynamically significant stenosis. The remaining portions of the internal carotid artery demonstrate normal size without significant narrowing. Left Carotid System: The common carotid artery and external carotid artery are patent. The carotid bifurcation demonstrate s no evidence of hemodynamically significant stenosis. There is proximal left internal carotid artery atherosclerosis without definitive percent narrowing series 411 image 91. The remaining portions of the internal carotid artery demonstrate normal size without significant narrowing. Vertebral arteries are patent without evidence hemodynamically significant stenosis. There is a three-vessel aortic arch. The origins of the great vessels are patent. No evidence of hemo dynamically significant stenosis. Upper thorax: Right midlung airspace opacities. Right pulmonary hilum lymph node measuring up to 15 m m. Moderate centrilobular and paraseptal emphysema changes. IMPRESSION: 1. Left proximal internal carotid artery soft plaque with up to 50% stenosis. 2. No evidence of dissection of the cervical internal carotid arteries or vertebral arteries. 3. No any evidence of significant stenosis at the carotid bifurcations. 4. No evidence of intracranial high-grade stenosis or intracranial aneurysm. 5. Right midlung masslike opacities with mediastinal/perihilar prominent lymph nodes further evaluat ion of the chest to exclude mass and/or infection recommended. 6. Moderate emphysema. [facility], , 03/10/2024 5:29 PM
[2024-03-10] MEDS: SODIUM CHLORIDE 0.9% IV STA (18:21)
[2024-03-10] MEDS ORDERED: NALOXONE 0.4 MG/ML 1 ML VIAL IV PRN (18:21)
[2024-03-10] MEDS: AZITHROMYCIN 500 MG in SODIUM CHLORIDE 0.9% 250 ML IVPB STA (18:24)
[2024-03-10] MEDS: cefTRIAXone IN SWFI 1,000 MG/10 ML SYRINGE IVP STA (18:25)
[2024-03-10] MEDS: ASPIRIN 81 MG PO STA (18:25)
[2024-03-10] MEDS ORDERED: PNEUMONIA PROTOCOL UTILIZED 1 EACH MISC PO PRN (18:30)
[2024-03-10] MEDS ORDERED: PANTOPRAZOLE 40 MG TABLET PO PRN (20:50)
[2024-03-10] MEDS: SODIUM CHLORIDE 0.9% 1,000 ML IV SCH (20:57)
[2024-03-10] MEDS: ATORVASTATIN 80 MG TAB PO SCH (21:00)
--- NOTE | 2024-03-10 21:05 | P.HPIM ---
History of Present Illness H&P Date: 03/10/24 Chief Complaint: Altered mental status/potential overdose History of present illness; 69-year-old male with a PMH of hypertension, GERD, hyperlipidemia, COPD (not on home O2) gout presents with altered mental status. Son and accompanying at bedside who provides some history. 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 States once he pulled up in the driveway he called his and said that he was not feeling like himself. states on the phone she could hear her was slurring his words significantly. reports the patient's daughter came out and sat with him in the car and noticed the patient became unarousable, had difficulty breathing, jerking movements of his upper extremities, and a very soft pulse and that this lasted for approximately half an hour. Patient reports the next thing he remembers after this episode started was when EMS arrived and at that time he stated he had a headache that he rated 6-7 out of 10, and generalized. Notes he also had some generalized weakness but it did not favor 1 side or the other. Patient states he usually takes baclofen for left knee pain, and that his normal dose is 1-2 tabs per day. Reports he took 2 tabs today but cannot remember at what time he took them. At time of interview patient admits to some shortness of breath which she states is chronic, but denies headache, chest pain, palpitations, weakness, fever, chills, cough, abdominal pain, and lower extremity swelling. Labs: WBC 15.2, hemoglobin 11.2, MCV 98.3, show 12.5, sodium 130, potassium 5.6, creatinine 1.52, glucose 146, calcium 8.2, creatinine kinase 38, troponin less than 0.012, influenza type A and B, RSV, COVID all negative. Imaging: - EKG done in the ER showed heart rate of 75 bpm, sinus rhythm, QTc 424 - ER CXR: Right midlung airspace opacities criteria for pneumonia. - ER CT Head: No acute intracranial process - CTA head and neck done showed left proximal internal carotid artery soft plaque with up to 50% stenosis, no evidence of dissection cervical internal carotid or vertebral arteries, no evidence of significant stenosis of the carotid bifurcations, no evidence of intracranial high-grade stenosis or int racranial aneurysm. Right midlung masslike opacities with mediastinal/perihilar prominent lymph nodes, and moderate emphysema. REVIEW OF SYSTEMS: As stated above in HPI. The rest of the 14-point review of systems is negative. PHYSICAL EXAMINATION: GENERAL: The patient is alert and oriented x3, not in any acute distress. Well developed, well nourished. HEENT: Pupils are round and equally reacting to light. EOMI. No scleral icterus. No conjunctival pallor. Normocephalic, atraumatic. CARDIOVASCULAR: S1 and S2 present. No murmurs, rubs, or gallops. PULMONARY: Chest is clear to auscultation b/l, no wheezing or crackles. ABDOMEN: Soft, nontender, nondistended, normoactive bowel sounds. No palpable organomegaly. MUSCULOSKELETAL: No joint swelling or deformity. EXTREMITIES: No cyanosis, clubbing, or pedal edema. NEUROLOGICAL: 5 out of 5 motor strength in the upper and lower extremities. CN II through XII intact with the exception of CN VII where it was appreciated the patient had left-sided facial droop most prominently periorally. SKIN: No rashes. Assessment and Plan 69-year-old male with a PMH of hypertension, GERD, hyperlipidemia, COPD (not on home O2), gout presents with altered mental status. Patient is being worked up for acute hypoxic respiratory failure and potential stroke/TIA versus baclofen overdose. #Acute hypoxic respiratory failure: Likely secondary to suspected CAP versus/and potential baclofen overdose -WBC 15.2, neutrophils 12.5, viral respiratory panel negative -Received Zithromax 500 mg IVPB once and Rocephin 1000 mg IVPB once in the ED -Continue Zithromax 500 mg p.o. daily and Rocephin 2 g IVPB every 24 hours for CAP coverage -Ordered sputum culture, blood culture, urine Legionella antigen -O2 NC as needed -Continue NS 130 cc/h -Pulmonology consulted, appreciate recommendations # ischemic stroke -CT brain showed no acute intracranial process, CTA head showed left proximal internal carotid artery up to 50% stenosis -Received one-time dose aspirin 324 mg p.o. in the ED -Started aspirin 325 mg p.o. daily -Continued home Lipitor 80 mg p.o. at bedtime -Ordered urine drug screen, alcohol level, acetaminophen level, osmolality, salicylate level, and hepatic function panel -Ordered lipid panel -Consider echo -Neurology consulted, appreciate further recommendations -Consider brain MRI PT/OT fall precautions neuro checks #Hyponatremia: -Sodium 130 on admission -Continue NS 130 cc/h -Continue to monitor CMP daily #Hyperkalemia: -Potassium 5.6 on admission -Hyperkalemia protocol including insulin regular 10 units IV once with dextrose 50% IVP 50 mL once if glucose less than 250, albuterol nebulized 10 mg once -Continue to monitor CMP, continue hyperkalemia protocol if indicated #Acute on chronic kidney injury: Likely due to decreased perfusion secondary to hypotension -Hypotension potentially caused by baclofen overdose -Baseline creatinine 1.52-1.8, 1.52 today -Baseline GFR 38-46, 46 today -Continue NS 130 cc/h -Continue to monitor daily CMP #Hyperglycemia -Glucose 146 -Ordered sliding scale, Accu-Cheks, and A1c Chronic Conditions: #Hypertension: -Hold home BP medications for now as patient is currently hypotensive #Hyperlipidemia: -Continue home medications as reconciled by pharmacy #GERD: -Continue home medications as reconciled by pharmacy #COPD: -Not on any home O2, only uses inhaler at home when needed -Does not appear to be in acute exacerbation -Continue medications as reconciled by pharmacy F: NS 130 cc/h E: None N: Heart healthy diet A: Normally ambulates unassisted at home DVT ppx: Heparin 5000 SQ every 8 HR GI ppx: Protonix 40 mg p.o. daily CODE STATUS: Full code Dispo: Pending clinical course Francie Aquino MD PGY-1 FM Dictation was produced using Generate dictation software. please excuse any grammatical, word or spelling errors. Past Medical History Past Medical History: GERD/Reflux, Hypertension Additional Past Medical History / Comment(s): GOUT History of Any Multi-Drug Resistant Organisms: None Reported Past Surgical History: Joint Replacement, Orthopedic Surgery Additional Past Surgical History / Comment(s): RIGHT KNEE ARTHROSCOPIC, RIGHT KNEE ARTHROTOMY, RT TKA Past Anesthesia/Blood Transfusion Reactions: No Reported Reaction Past Psychological History: No Psychological Hx Reported Smoking Status: Former smoker Past Alcohol Use History: Occasional Past Drug Use History: None Reported - Past Family History Mother Family Medical History: Cancer Father Family Medical History: Cancer Medications and Allergies Home Medications Medication Instructions Recorded Confirmed Type Baclofen 10 mg PO BID 05/21/16 03/10/24 History allopurinoL [Zyloprim] 100 mg PO DAILY 11/15/21 03/10/24 History Atorvastatin [Lipitor] 80 mg PO HS 03/10/24 03/10/24 History Fluticasone Propion/Salmeterol 1 puff INHALATION RT-BID 03/10/24 03/10/24 History [Advair 250-50 Diskus] Isosorbide Mononitrate ER [Imdur] 30 mg PO DAILY 03/10/24 03/10/24 History Omeprazole [PriLOSEC] 40 mg PO DAILY PRN 03/10/24 03/10/24 History lisinopriL [Zestril] 20 mg PO DAILY 03/10/24 03/10/24 History Allergies Allergy/AdvReac Type Severity Reaction Status Date / Time No Known Allergies Allergy Verified 03/10/24 17:48 Physical Exam Vitals: Vital Signs Temp Pulse Resp BP Pulse Ox 03/10/24 18:29 73 18 96/66 97 03/10/24 17:53 68 18 135/72 98 03/10/24 17:16 78 18 92/60 96 03/10/24 17:03 73 18 86/55 96 03/10/24 17:00 78 19 83/43 92 L 03/10/24 16:59 79 18 83/43 92 L 03/10/24 16:45 16 89/53 92 L 03/10/24 16:41 78 18 89/54 98 03/10/24 16:30 79 18 87/57 98 03/10/24 16:15 75 18 87/57 99 03/10/24 16:04 97.4 F L 78 18 87/57 99 Intake and Output 03/10/24 03/10/24 03/10/24 06:59 14:59 22:59 Other: Weight 96.162 kg Results CBC & Chem 7: 03/10/24 16:26 03/10/24 16:38 Labs: Abnormal Lab Results - Last 24 Hours (Table) 03/10/24 03/10/24 03/10/24 Range/Units 16:26 16:32 16:38 WBC 15.2 H (3.8-10.6) k/uL RBC 3.47 L (4.30-5.90) m/uL Hgb 11.2 L (13.0-17.5) gm/dL Hct 34.2 L (39.0-53.0) % Neutrophils # 12.5 H (1.3-7.7) k/uL Sodium 130 L (137-145) mmol/L Potassium 5.6 H (3.5-5.1) mmol/L BUN 27 H (9-20) mg/dL Creatinine 1.52 H (0.66-1.25) mg/dL Glucose 146 H (74-99) mg/dL POC Glucose (mg/dL) 149 H (70-110) mg/dL Calcium 8.2 L (8.4-10.2) mg/dL Creatine Kinase 38 L (55-170) U/L
[2024-03-11] MEDS ORDERED: DEXTROSE 50% SYRINGE 50 ML IVP PRN ×2 (00:49)
[2024-03-11 01:34] LABS: Glucose,Whole Blood 111 mg/dL (70-110)
[2024-03-11] MEDS: DEXTROSE 50% SYRINGE 50 ML IVP ONE (02:24)
[2024-03-11] MEDS: INSULIN REGULAR 100 UNIT/ML VIAL (IV) IV ONE (02:25)
[2024-03-11 04:35] LABS: Hypochromasia Slight; MCH 32.3 pg (25.0-35.0); Macrocytosis Slight; Mean Platelet Volume 7.3; Platelet Count 248 k/uL (150-450); RBC 2.97 m/uL (4.30-5.90); RDW 13.4 % (11.5-15.5); WBC 9.3 k/uL (3.8-10.6)
[2024-03-11 04:46] LABS: ALT 12 U/L (4-49); AST 17 U/L (17-59); African American GFR (CKD) 70 (>60 ml/min/1.73 sqM); Albumin 2.9 g/dL (3.5-5.0); Alkaline Phosphatase 101 U/L (38-126); Anion Gap 4 mmol/L; Blood Urea Nitrogen 25 mg/dL (9-20); Calcium 7.2 mg/dL (8.4-10.2); Carbon Dioxide 25 mmol/L (22-30); Chloride 106 mmol/L (98-107); Glucose 63 mg/dL (74-99); Non-African American GFR(CKD) 60 (>60 ml/min/1.73 sqM); Sodium 135 mmol/L (137-145); Total Bilirubin 0.5 mg/dL (0.2-1.3); Total Protein 5.5 g/dL (6.3-8.2)
[2024-03-11] MEDS ORDERED: RX INFO: IV CONTRAST WAS GIVEN 1 EACH MISC MISCELLANE PRN (04:47)
[2024-03-11 05:10] LABS: HGB 9.6 gm/dL (13.0-17.5)
[2024-03-11] MEDS: ALBUTEROL NEB (CONC) 2.5 MG/0.5 ML INHALATION ONE (05:36)
--- NOTE | 2024-03-11 05:56 | P.CNPUL ---
History of Present Illness Consult date: 03/11/24 Requesting physician: Edilberto Jerez Reason for consult: pneumonia Chief complaint: Altered mental status History of present illness: Patient is a 69-year-old male with past medical history significant for COPD, lung nodule, heavy past tobacco use, hyperlipidemia, hypertension. Patient presented to the ED yesterday afternoon. He was brought in by EMS and was found to be altered. Apparently, he was going to order picker/assembler his grand daughter from gymnastics. He got confused and lost, called his , who then called EMS. He may have been slurring his words. Did reportedly become unarousable at some point. Brain CT done on arrival unremarkable for intracranial hemorrhage or mass effect. Brain CTA did not show evidence of dissection or significant stenosis of the carotid bifurcations. There is left proximal internal carotid artery plaquing with up to 50% stenosis. No evidence of intracranial high-grade stenosis or intercranial aneurysm. Incidentally, a right midlung masslike opacity was identified with prominence mediastinal/perihilar lymph nodes, likely reactive. Most recent chest CT was done July, showing a stable left lung pleural-based density. No significant right lung nodules. This is more than likely a infectious process. Patient is currently being evaluated in the ED department. He does report productive cough over the last 3 to 4 days. Reports black to brown sputum production. Denies any fevers, chills, chest pain, hemoptysis. States he has been feeling relatively well prior to this. Has been eating and drinking appropriately. No nausea or vomiting or diarrhea. No sick contacts. No recent treatment outpatient for pneumonia. He does have moderate COPD, with an PAD376% of predicted. Normally utilizes Advair twice daily and Ventolin and on a as needed basis. His COPD has been fairly well-controlled on an outpatient basis. Chest x-ray showing a right midlung airspace opacity consistent with pneumonia. CBC: WBC count 15.2, hemoglobin 11.2, hematocrit 34.2, platelets 348. Most recent BMP: Sodium 135, potassium 4, chloride 106, serum bicarb 25, BUN 25, creatinine 1.22, glucose 63. Lactic 1.2. Normal saline squeezing at 130 mL/h. Negative for influenza, RSV, COVID. He is currently resting comfortably in bed. Alert and oriented. Neruological examination is positive for some flattening of the left nasolabial fold, oth erwise non-focal. He denies history of CVA/TIA. No thrombolytics were given in the ED. From a pulmonary standpoint. He is on room air. SpO2 98%. He is in no respiratory distress. Remaining vital signs are stable. Nontoxic appearance. . Review of Systems Constitutional: Denies chills, Denies fever, Denies night sweats, Denies poor appetite, Denies sweats Ears, nose, mouth and throat: Denies headache, Denies nasal congestion, Denies nasal discharge, Denies post-nasal drip, Denies sinus pain, Denies sinus pressure, Denies sore throat Cardiovascular: Denies chest pain, Denies dyspnea on exertion, Denies leg edema, Denies lightheadedness, Denies orthopnea, Denies palpitations, Denies paroxysmal nocturnal dyspnea, Denies shortness of breath Respiratory: Reports cough, Reports cough with sputum, Denies congestion, Denies hemoptysis, Denies home oxygen, Denies wheezing Gastrointestinal: Denies abdominal pain, Denies diarrhea, Denies nausea, Denies vomiting Genitourinary: Denies dysuria Musculoskeletal: Denies limitation of motion Integumentary: Denies rash Neurological: Reports aphasia, Denies balance difficulties, Denies gait dysfun ction, Denies head injury, Denies headaches, Denies lack of coordination, Denies numbness, Denies paralysis, Denies paresthesias, Denies seizures, Denies syncope, Denies visual changes Psychiatric: Denies anxiety, Denies depression Past Medical History Past Medical History: GERD/Reflux, Hypertension Additional Past Medical History / Comment(s): GOUT History of Any Multi-Drug Resistant Organisms: None Reported Past Surgical History: Joint Replacement, Orthopedic Surgery Additional Past Surgical History / Comment(s): RIGHT KNEE ARTHROSCOPIC, RIGHT KNEE ARTHROTOMY, RT TKA Past Anesthesia/Blood Transfusion Reactions: No Reported Reaction Past Psychological History: No Psychological Hx Reported Smoking Status: Former smoker Past Alcohol Use History: Occasional Past Drug Use History: None Reported - Past Family History Mother Family Medical History: Cancer Father Family Medical History: Cancer Medications and Allergies Home Medications Medication Instructions Recorded Confirmed Type Baclofen 10 mg PO BID 05/21/16 03/10/24 History allopurinoL [Zyloprim] 100 mg PO DAILY 11/15/21 03/10/24 History Atorvastatin [Lipitor] 80 mg PO HS 03/10/24 03/10/24 History Fluticasone Propion/Salmeterol 1 puff INHALATION RT-BID 03/10/24 03/10/24 History [Advair 250-50 Diskus] Isosorbide Mononitrate ER [Imdur] 30 mg PO DAILY 03/10/24 03/10/24 History Omeprazole [PriLOSEC] 40 mg PO DAILY PRN 03/10/24 03/10/24 History lisinopriL [Zestril] 20 mg PO DAILY 03/10/24 03/10/24 History Allergies Allergy/AdvReac Type Severity Reaction Status Date / Time No Known Allergies Allergy Verified 03/10/24 17:48 Physical Exam Vitals: Vital Signs Temp Pulse Resp BP Pulse Ox 03/11/24 02:29 88 18 110/60 95 03/10/24 23:23 82 18 98/56 97 03/10/24 19:17 97.3 F L 79 18 113/77 97 03/10/24 18:29 73 18 96/66 97 03/10/24 17:53 68 18 135/72 98 03/10/24 17:16 78 18 92/60 96 03/10/24 17:03 73 18 86/55 96 03/10/24 17:00 78 19 83/43 92 L 03/10/24 16:59 79 18 83/43 92 L 03/10/24 16:45 16 89/53 92 L 03/10/24 16:41 78 18 89/54 98 03/10/24 16:30 79 18 87/57 98 03/10/24 16:15 75 18 87/57 99 03/10/24 16:04 97.4 F L 78 18 87/57 99 Intake and Output 03/10/24 03/10/24 03/11/24 14:59 22:59 06:59 Other: Weight 96.162 kg GENERAL EXAM: Alert, 69-year-old white male, comfortable in no apparent distress. HEAD: Normocephalic and atraumatic EYES: Normal reaction of pupils, equal size. NOSE: Clear with pink turbinates. THROAT: No erythema or exudates. NECK: No masses, no JVD. CHEST: No chest wall deformity. LUNGS: Equal air entry with no crackles, wheeze, rhonchi or dullness. On room air. No conversational dyspnea or accessory muscle use.. CVS: S1 and S2 normal with no audible murmur, regular rhythm. No extra heart sounds ABDOMEN: No hepatosplenomegaly, active bowel sounds, no guarding or rigidity. SPINE: No scoliosis or deformity SKIN: No rashes CENTRAL NERVOUS SYSTEM: Alert and oriented. Flattening of the left nasolabial fold, otherwise no focal deficits. No unilateral extremity weakess, no ataxia, gait assessment deferred. EXTREMITIES: There is no peripheral edema, clubbing, or cyanosis. Peripheral pulses are intact. Results - Laboratory Findings CBC and BMP: 03/11/24 04:18 03/11/24 04:18 PT/INR, D-dimer PT 10.9 sec (10.0-12.5) 03/10/24 16:38 INR 1.0 (<1.2) 03/10/24 16:38 Abnormal lab findings: Abnormal Labs 03/10/24 03/10/24 03/10/24 16:26 16:32 16:38 WBC 15.2 H RBC 3.47 L Hgb 11.2 L Hct 34.2 L Neutrophils # 12.5 H Sodium 130 L Potassium 5.6 H BUN 27 H Creatinine 1.52 H Glucose 146 H POC Glucose (mg/dL) 149 H Calcium 8.2 L Creatine Kinase 38 L Total Protein Albumin 03/11/24 03/11/24 01:32 04:18 WBC RBC Hgb Hct Neutrophils # Sodium 135 L Potassium BUN 25 H Creatinine Glucose 63 L POC Glucose (mg/dL) 111 H Calcium 7.2 L Creatine Kinase Total Protein 5.5 L Albumin 2.9 L - Diagnostic Findings Chest x-ray: image reviewed Assessment and Plan Assessment: Suspect right middle lobe community-acquired pneumonia, brain CTA showed inci dental finding of right midlung masslike opacity with likely reactive mediastinal/perihilar lymph nodes. This was not demonstrated on recent CT done July,, there was a stable left lung pleural-based density. More than likely this is a right midlung community-acquired pneumonia Acute leukocytosis Moderate chronic obstructive pulmonary disease, with a baseline FEV1 57% of predicted. Normally maintained on Advair twice a day and Ventolin as needed rescue inhaler. Former tobacco dependence, reportedly quit smoking over 15 years ago. With over [id number] history Altered mental status, possible CVA/TIA Acute kidney injury, improving History of hypertension History of hyperlipidemia Obesity, with a BMI of 32.2 kg/m Plan: Patient's medications, labs, imaging reviewed On room air oxygen Patient has been started on empiric antibiotics for suspected community-acquired pneumonia Sputum cultures, blood cultures are pending Urine Legionella antigen pending Check procalcitonin Negative for influenza, RSV, COVID. Follow chest CT if no improvement Resume home COPD medications, does not appear to be in exacerbation Neurology is consulted No fibrinolytics were given, medical management was recommended. Urine drug screen to be collected. We will also continue to follow I have personally seen and examined the patient, performed the documentation and the assessment and plan as written. Number of minutes spent on the visit:20 This is a joint evaluation was done along with the nurse practitioner. This evaluation was done more than 30 minutes. The patient was seen and examined and case was also discussed with the son at the bedside. The patient does not have COPD, moderately severe with an FEV1 of 57% of predicted. The patient presented to us with lethargy, unresponsiveness and it was also thought that the patient had also lost his pulse and he received a brief CPR at home. Nevertheless, an acute cardiopulmonary arrest was not confirmed. He did have also some slurred speech and confusion and suspected right facial weakness. Based on that, CT scan of the brain was done that showed no acute abnormalities and the CT angiogram of the brain showed no significant vascular abnormalities in the patient had less than 50% left proximal internal carotid artery plaquing. He is currently awake and alert and communicating. Chest x-ray showed a right lung opacity and based on that the patient underwent a CT scan of the chest that showed a masslike consolidation involving the right lower lobe superior segment which is consistent with pneumonia. Noted the patient's white cell count is only at 9.3. Procalcitonin level is 0.26. The viral screen has not been done. BUN is 25 with a creatinine of 1.2. Rest of the electrolytes are all within normal limits. He is currently on room air oxygen with a pulse ox of 96%. He did complain of increased cough and congestion and some chest discomfort on the left. He is currently on a combination of Rocephin and Zithromax. Neurology has been involved in the case and MRI of the brain was ordered. No indication for any underlying seizure activity. No history of any significant cardiac disease. Continue antibiotics. Proceed with MRI of the brain. Neurology consultation. Repeat chest x-ray within next 24 to 48 hours. Will continue to follow. Time with Patient: Greater than 30
[2024-03-11] MEDS ORDERED: IPRATROPIUM-ALBUTEROL 3 ML NEB INHALATION PRN (05:57)
--- NOTE | 2024-03-11 06:54 | P.CNNES ---
History of Present Illness Consult date: 03/11/24 Reason for Consult: ? Facial Drrp, ? stroke Chief complaint: I had a headache yesterday and passed out driving to my granddaughter's. History of Present Illness: Mr. Rogers is a 69-year-old right-handed male with history of hypertension, gastroesophageal reflux disease, hyperlipidemia, COPD, and gout. He was seen in the [facility] emergency room yesterday March 10, 2024 as he was brought in because he had an episode of unresponsiveness with slurred speech while he was driving to pecan picker his granddaughter. The patient reports that he had a half holocranial headache that was steady in nature and then began feeling dizzy. He may have lost consciousness for short period of time. Following this he was noted to have some slurred speech and was noted to have some jerking of his upper extremities while he was undergoing the episode. Of note, he does take baclofen 10 mg twice daily and he takes 2 tablets/day. It is unknown if he took perhaps more than this and the suspicion is that he may have had a baclofen overdose. He has been noted to have some generalized weakness but he was also noted to have a possible left-sided facial droop. His NIH score was 2, and no thrombolytics were given. Neurology has been consulted for further management recommendations. Review of Systems Constitutional: Reports as per HPI, Reports weakness Ears, nose, mouth and throat: Reports as per HPI Cardiovascular: Reports as per HPI Respiratory: Reports cough with sputum, Reports sleep apnea, Reports snoring Gastrointestinal: Reports as per HPI Genitourinary: Reports as per HPI Musculoskeletal: Reports as per HPI Integumentary: Reports as per HPI Neurological: Reports as per HPI Psychiatric: Reports as per HPI Endocrine: Reports as per HPI Past Medical History Past Medical History: GERD/Reflux, Hypertension Additional Past Medical History / Comment(s): GOUT History of Any Multi-Drug Resistant Organisms: None Reported Past Surgical History: Joint Replacement, Orthopedic Surgery Additional Past Surgical History / Comment(s): RIGHT KNEE ARTHROSCOPIC, RIGHT KNEE ARTHROTOMY, RT TKA Past Anesthesia/Blood Transfusion Reactions: No Reported Reaction Past Psychological History: No Psychological Hx Reported Smoking Status: Former smoker Past Alcohol Use History: Occasional Past Drug Use History: None Reported - Past Family History Mother Family Medical History: Cancer Father Family Medical History: Cancer Medications and Allergies Home Medications Medication Instructions Recorded Confirmed Type Baclofen 10 mg PO BID 05/21/16 03/10/24 History allopurinoL [Zyloprim] 100 mg PO DAILY 11/15/21 03/10/24 History Atorvastatin [Lipitor] 80 mg PO HS 03/10/24 03/10/24 History Fluticasone Propion/Salmeterol 1 puff INHALATION RT-BID 03/10/24 03/10/24 History [Advair 250-50 Diskus] Isosorbide Mononitrate ER [Imdur] 30 mg PO DAILY 03/10/24 03/10/24 History Omeprazole [PriLOSEC] 40 mg PO DAILY PRN 03/10/24 03/10/24 History lisinopriL [Zestril] 20 mg PO DAILY 03/10/24 03/10/24 History Allergies Allergy/AdvReac Type Severity Reaction Status Date / Time No Known Allergies Allergy Verified 03/10/24 17:48 Physical Examination - Vital Signs Vital Signs: Vital Signs Temp Pulse Resp BP Pulse Ox 03/11/24 06:07 131 H 18 141/72 96 03/11/24 05:47 110 H 03/11/24 05:38 109 H 03/11/24 02:29 88 18 110/60 95 03/10/24 23:23 82 18 98/56 97 03/10/24 19:17 97.3 F L 79 18 113/77 97 03/10/24 18:29 73 18 96/66 97 03/10/24 17:53 68 18 135/72 98 03/10/24 17:16 78 18 92/60 96 03/10/24 17:03 73 18 86/55 96 03/10/24 17:00 78 19 83/43 92 L 03/10/24 16:59 79 18 83/43 92 L 03/10/24 16:45 16 89/53 92 L 03/10/24 16:41 78 18 89/54 98 03/10/24 16:30 79 18 87/57 98 03/10/24 16:15 75 18 87/57 99 03/10/24 16:04 97.4 F L 78 18 87/57 99 Intake and Output 03/10/24 03/10/24 03/11/24 14:59 22:59 06:59 Other: Weight 96.162 kg Evidence of distinct facial droop was noted on exam, however he has a slightly flattened nasolabial fold on the right. - Constitutional General appearance: average body habitus - EENT EENT: PERRL - Respiratory Respiratory: chest non-tender, lungs clear, normal breath sounds - Cardiovascular Cardiovascular: regular rate, no murmurs - Gastrointestinal Gastrointestinal: normoactive bowel sounds, non-tender - Integumentary Integumentary: normal - Neurologic Cranial nerve examination: PERRL, EOMI, other (May be a slightly flattened nasolabial fold on the right. However the patient cannot raise his face symmetrically and eyebrows raise equally.) Sensorimotor examination: intact Detailed motor examination: full strength in all major muscle groups Detailed sensory examination: intact Reflex and gait examination: other (Evidence of Babinski sign was noted when his ankles were struck with a reflex hammer.) Results Noncontrast CT of the head from March 10 was read as negative and, and a CTA angiogram of the head and neck revealed approximately 50% left-sided internal carotid stenosis with some right sided lung opacities. EKG revealed normal sinus rhythm at 75 bpm. Chest x-ray reveals right middle lung opacity possibly consistent with pneumonia. - Laboratory Findings CBC and BMP: 03/11/24 04:18 03/11/24 04:18 Abnormal Lab Findings: Abnormal Labs 03/10/24 03/10/24 03/10/24 16:26 16:32 16:38 WBC 15.2 H RBC 3.47 L Hgb 11.2 L Hct 34.2 L MCV Neutrophils # 12.5 H Sodium 130 L Potassium 5.6 H BUN 27 H Creatinine 1.52 H Glucose 146 H POC Glucose (mg/dL) 149 H Calcium 8.2 L Creatine Kinase 38 L Total Protein Albumin 03/11/24 03/11/24 03/11/24 01:32 04:18 04:18 WBC RBC 2.97 L Hgb 9.6 L D Hct 30.0 L MCV 101.0 H Neutrophils # Sodium 135 L Potassium BUN 25 H Creatinine Glucose 63 L POC Glucose (mg/dL) 111 H Calcium 7.2 L Creatine Kinase Total Protein 5.5 L Albumin 2.9 L Assessment and Plan Assessment: Manuela is a 69-year-old right-handed white male with history of hypertension, gastroesophageal reflux disease, hyperlipidemia, COPD, and gout. He may have taken too many baclofen tablets yesterday however he distinctly denies this. He had an episode of poor responsiveness while driving in the car to pecan picker his granddaughter. A left facial droop was noted yesterday however this is not visible to my exam this morning. He appears otherwise neurologically nonfocal. Plan: 1. I have ordered a routine electroencephalogram to assess for seizure activity after the patient was noted to be possibly unresponsive with shaking of his upper extremities. If this is positive for epileptiform activity I will manage him with anticonvulsants, possibly Keppra 500 mg daily. 2. I have ordered an noncontrast MRI of the brain to screen for cerebral infarct. If this is noted I will order an echocardiogram as well as lipid panel and hemoglobin A1c. 3. The patient has been started on aspirin 325 mg daily and I would continue this into his outpatient regimen. 4. Neurology will continue to follow with patient in house and make further recommendations as needed. Time with Patient: Less than 30
[2024-03-11 06:57] LABS: Amphetamine Screen,Urine Not Detected (NotDetected); Barbiturate Screen,Urine Not Detected (NotDetected); Benzodiazepines Screen,Urine Not Detected (NotDetected); Cocaine Screen,Urine Not Detected (NotDetected); Methadone Screen, Urine Not Detected (NotDetected); Opiate Screen,Urine Not Detected (NotDetected); Oxycodone Screen, Urine Not Detected (NotDetected); Phencyclidine Screen,Urine Not Detected (NotDetected); Tricyclic Antidepressant,Urine Not Detected (NotDetected); Urn Cannabinoid Scrn Not Detected (NotDetected)
[2024-03-11] MEDS: SYMBICORT 80-4.5 MCG INHALER INHALATION SCH (07:40)
[2024-03-11] MEDS: IPRATROPIUM-ALBUTEROL 3 ML NEB INHALATION SCH (07:40)
--- NOTE | 2024-03-11 07:51 | XR ---
EXAMINATION TYPE: XR chest 1V portable DATE OF EXAM: 03/11/2024 COMPARISON: 03/10/2024 CLINICAL INDICATION: Male, 69 years old with history of pneumonia; TECHNIQUE: Single frontal view of the chest is obtained. FINDINGS: Focal infiltrate is unchanged right midlung zone. The cardiac silhouette size is within nor mal limits. The osseous structures are intact. IMPRESSION: Focal infiltrate is unchanged right midlung zone. [facility], , 03/11/2024 7:49 AM
--- NOTE | 2024-03-11 08:09 | CT ---
EXAMINATION TYPE: CT chest w con DATE OF EXAM: 03/11/2024 COMPARISON: 07/22/2023 CLINICAL INDICATION: Male, 69 years old with history of right masslike density; PHH, RIGHT MASSLIKE D ENSITY TECHNIQUE: CT scan of the chest is performed with IV Contrast, patient injected with 100 mL of Isovue 370. MIP Images are created on CT scanner and reviewed. 3D reconstructed images are created on an independent workstation and reviewed. CT DLP: 458.[address] CTDI: mGy Automated exposure control for dose reduction was used. FINDINGS: LUNGS: There is focal consolidation of the right lower lobe superior segment which may reflect pneumo ni in the appropriate clinical setting. Correlate clinically and follow up until resolution is advis ed. There is a small adjacent nodule noted right upper lobe measuring 4 mm) adjacent to millimeter no dule which appear to be new relative to the prior study. Additional nodule lateral segment right midd le lobe is pleural-based and measures 4 mm. Hyperinflation and mild upper lobe emphysematous change. MEDIASTINUM: Right hilar adenopathy measuring 2.7 cm could be reactive in nature. No mediastinal or l eft hilar adenopathy greater than 1 cm. OTHER: No additional significant abnormality is seen. IMPRESSION: 1.There is focal consolidation of the right lower lobe superior segment which may reflect pneumonia i n the appropriate clinical setting. Correlate clinically and follow up until resolution is advised. 2. Pulmonary nodularity. Follow-up in 6 months advised. Follow-up recommendations for incidental pulmonary nodules are per [employer] or [employer]. [facility], , 03/11/2024 8:06 AM
[2024-03-11] MEDS: HEPARIN SODIUM,PORCINE 5,000 UNIT/ML 1 ML VIAL SQ SCH (08:48)
[2024-03-11] MEDS: AZITHROMYCIN 500 MG TAB PO SCH (08:48)
[2024-03-11] MEDS: ASPIRIN 325 MG TAB PO SCH (08:48)
[2024-03-11 08:58] LABS: Glucose,Whole Blood 120 mg/dL (70-110)
[2024-03-11] MEDS: INSULIN ASPART (NovoLOG) 100 UNIT/ML VIAL SQ SCH (09:01)
[2024-03-11 10:36] LABS: Chol/HDL Ratio 3.07 Ratio; LDL Cholesterol,Calculated 58.4 mg/dL (0.0-131.0); VLDL Calculation 19.08 mg/dL (5.00-40.00)
[2024-03-11 12:59] LABS: Glucose,Whole Blood 145 mg/dL (70-110)
--- NOTE | 2024-03-11 15:21 | P.PN ---
Subjective Progress Note Date: 03/11/24 Principal diagnosis: encephalopathy 69-year-old male was hospitalized about the hospital for confusion. Question of a baclofen overdose. The patient workup showed pneumonia. Objective - Vital Signs Vital signs: Vital Signs Temp 97.3 F L 03/10/24 19:17 Pulse 117 H 03/11/24 15:16 Resp 18 03/11/24 15:16 BP 132/79 03/11/24 15:16 Pulse Ox 94 L 03/11/24 15:16 FiO2 Intake & Output 03/10/24 03/11/24 03/11/24 18:59 06:59 18:59 Weight 96.162 kg - Constitutional General appearance: Present: no acute distress - Respiratory Respiratory: bilateral: diminished - Cardiovascular Details: Tachycardic - Gastrointestinal General gastrointestinal: Present: normal bowel sounds - Neurologic Neurologic: Present: CNII-XII intact - Musculoskeletal Musculoskeletal: Present: strength equal bilaterally - Psychiatric Psychiatric: Present: A&O x's 3 - Labs CBC & Chem 7: 03/11/24 04:18 03/11/24 04:18 Labs: Abnormal Lab Results - Last 24 Hours (Table) 03/10/24 03/10/24 03/10/24 Range/Units 16:26 16:32 16:38 WBC 15.2 H (3.8-10.6) k/uL RBC 3.47 L (4.30-5.90) m/uL Hgb 11.2 L (13.0-17.5) gm/dL Hct 34.2 L (39.0-53.0) % MCV (80.0-100.0) fL Neutrophils # 12.5 H (1.3-7.7) k/uL Sodium 130 L (137-145) mmol/L Potassium 5.6 H (3.5-5.1) mmol/L BUN 27 H (9-20) mg/dL Creatinine 1.52 H (0.66-1.25) mg/dL Glucose 146 H (74-99) mg/dL POC Glucose (mg/dL) 149 H (70-110) mg/dL Calcium 8.2 L (8.4-10.2) mg/dL Creatine Kinase 38 L (55-170) U/L Total Protein (6.3-8.2) g/dL Albumin (3.5-5.0) g/dL HDL Cholesterol (40.00-60.00) mg/dL 03/11/24 03/11/24 03/11/24 Range/Units 01:32 04:18 04:18 WBC (3.8-10.6) k/uL RBC 2.97 L (4.30-5.90) m/uL Hgb 9.6 L D (13.0-17.5) gm/dL Hct 30.0 L (39.0-53.0) % MCV 101.0 H (80.0-100.0) fL Neutrophils # (1.3-7.7) k/uL Sodium 135 L (137-145) mmol/L Potassium (3.5-5.1) mmol/L BUN 25 H (9-20) mg/dL Creatinine (0.66-1.25) mg/dL Glucose 63 L (74-99) mg/dL POC Glucose (mg/dL) 111 H (70-110) mg/dL Calcium 7.2 L (8.4-10.2) mg/dL Creatine Kinase (55-170) U/L Total Protein 5.5 L (6.3-8.2) g/dL Albumin 2.9 L (3.5-5.0) g/dL HDL Cholesterol 37.50 L (40.00-60.00) mg/dL 03/11/24 03/11/24 Range/Units 08:56 12:57 WBC (3.8-10.6) k/uL RBC (4.30-5.90) m/uL Hgb (13.0-17.5) gm/dL Hct (39.0-53.0) % MCV (80.0-100.0) fL Neutrophils # (1.3-7.7) k/uL Sodium (137-145) mmol/L Potassium (3.5-5.1) mmol/L BUN (9-20) mg/dL Creatinine (0.66-1.25) mg/dL Glucose (74-99) mg/dL POC Glucose (mg/dL) 120 H 145 H (70-110) mg/dL Calcium (8.4-10.2) mg/dL Creatine Kinase (55-170) U/L Total Protein (6.3-8.2) g/dL Albumin (3.5-5.0) g/dL HDL Cholesterol (40.00-60.00) mg/dL Assessment and Plan (1) Pneumonia Current Visit: Yes Status: Acute Code(s): J18.9 - PNEUMONIA, UNSPECIFIED ORGANISM SNOMED Code(s): 100966188 (2) TIA (transient ischemic attack) Current Visit: Yes Status: Acute Code(s): G45.9 - TRANSIENT CEREBRAL ISCHEMIC ATTACK, UNSPECIFIED SNOMED Code(s): 165878863 Plan: Appreciate Pulmonary and Neurology input. Non-contrast MRI has been ordered. Neurology began depending on results of MRI. EEG has also been ordered discussed with pulmonary. Add Legionella antigen. Continue antibiotics
[2024-03-11] MEDS ORDERED: LORazepam 2 MG/ML INJ IV PRN ×3 (17:04)
[2024-03-11 17:11] LABS: Glucose,Whole Blood 118 mg/dL (70-110)
[2024-03-11 20:15] LABS: Glucose,Whole Blood 126 mg/dL (70-110)
[2024-03-12 06:08] LABS: Glucose,Whole Blood 112 mg/dL (70-110)
[2024-03-12 06:31] LABS: African American GFR (CKD) 88 (>60 ml/min/1.73 sqM); Anion Gap 8 mmol/L; Blood Urea Nitrogen 12 mg/dL (9-20); Calcium 8.1 mg/dL (8.4-10.2); Carbon Dioxide 23 mmol/L (22-30); Chloride 106 mmol/L (98-107); Glucose 97 mg/dL (74-99); Non-African American GFR(CKD) 77 (>60 ml/min/1.73 sqM); Sodium 137 mmol/L (137-145)
[2024-03-12 07:30] LABS: Basophils % (A) 0 %; Eosinophils # (A) 0.3 k/uL (0-0.7); Eosinophils % (A) 4 %; HCT 31.1 % (39.0-53.0); Hypochromasia Slight; Lymphocytes # (A) 0.8 k/uL (1.0-4.8); Lymphocytes % (A) 10 %; MCH 31.9 pg (25.0-35.0); MCHC 32.2 g/dL (31.0-37.0); MCV 99.1 fL (80.0-100.0); Mean Platelet Volume 7.2; Monocytes # (A) 0.4 k/uL (0-1.0); Monocytes % (A) 5 %; Neutrophils # (A) 6.2 k/uL (1.3-7.7); Neutrophils % (A) 79 %; Platelet Count 250 k/uL (150-450); RBC 3.14 m/uL (4.30-5.90); RDW 13.4 % (11.5-15.5); WBC 7.8 k/uL (3.8-10.6)
[2024-03-12] MEDS: THIAMINE 100 MG TAB PO SCH (08:22)
--- NOTE | 2024-03-12 10:05 | CT ---
EXAMINATION TYPE: CT brain wo con DATE OF EXAM: 03/12/2024 9:39 AM COMPARISON: 12/02/2021 CLINICAL INDICATION: Male, 69 years old with history of episode unresponsiveness, ? L facial droop, e pisode of unresponsiveness, L facial droop, TECHNIQUE: Examination was done in axial plane without intravenous contrast. Coronal and sagittal r econstructions performed. CT DLP: 1141.1 mGycm, Automated exposure control for dose reduction was used. FINDINGS: There is no evidence of acute intracranial hemorrhage, acute ischemic changes, mass, mass-effect, or extra-axial fluid collection. There is no effacement of cerebral sulci or basal subarachnoid cister ns. There is no hydrocephalus. There is no midline shift. Garcia-white matter distinction is preserv ed. Benign bilateral basal ganglia calcifications. Mild patchy periventricular white matter hypodensities in both cerebral hemispheres. Partially empty sella incidentally noted. Scattered moderate mucosal thickening throughout the paranasal sinuses. Slight leftward nasal septal deviation. Mastoid are cells well pneumatized. Orbits and globes are intact. IMPRESSION: 1. Mild patchy burden of chronic small vessel ischemic disease. No acute intracranial abnormality see n. If symptoms persist, consider MRI. 2. Moderate chronic paranasal sinus disease. [facility], , 03/12/2024 10:03 AM
--- NOTE | 2024-03-12 10:13 | P.PN ---
Subjective Progress Note Date: 03/12/24 Principal diagnosis: Altered mental status Mr. Rogers is a 69-year-old right-handed male with history of hypertension, gastroesophageal reflux disease, hyperlipidemia, COPD, and gout. He was seen in the [facility] emergency room yesterday March 10, 2024 as he was brought in because he had an episode of unresponsiveness with slurred speech while he was driving to pickle processor his granddaughter. The patient reports that he had a half holocranial headache that was steady in nature and then began feeling dizzy. He may have lost consciousness for short period of time. Following this he was noted to have some slurred speech and was noted to have some jerking of his upper extremities while he was undergoing the episode. Of note, he does take baclofen 10 mg twice daily and he takes 2 tablets/day. It is unknown if he took perhaps more than this and the suspicion is that he may have had a baclofen overdose. He has been noted to have some generalized weakness but he was also noted to have a possible left-sided facial droop. His NIH score was 2, and no thrombolytics were given. Neurology has been consulted for further management recommendations. When he was seen initially on March 11, 2024 his neurologic exam was nonfocal. A CT scan noncontrast of his brain was ordered for the morning of March 12. On evaluation on March [address] has been performed and is again nonfocal without any lateralizing neurologic lesions. The patient feels well and is Uftoral walking in his room. Exam does not reveal any distinct focal neurologic deficits. He is pending an EEG at this time which will be read this afternoon. However I do not believe he has had either a stroke or a seizure and he is likely to be discharged this evening. Assessment: Barb Rogers is a 69-year-old right-handed white male with history of hypertension, gastroesophageal reflux disease, hyperlipidemia, COPD, and gout. He may have taken too many baclofen tablets yesterday however he distinctly denies this. He had an episode of poor responsiveness while driving in the car to pickle processor his granddaughter. A left facial droop was noted yesterday however this is not visible to my exam this morning. He appears otherwise neurologically nonfocal. Plan: 1. He has repeat CT scan from this morning does not reveal any evidence of lateralizing brain lesion. 2. I will read his EEG this afternoon and if this is clear I believe the patient can be discharged home. He is cleared neurologically to to be discharged. 3 if he remains in house, neurology will continue to see him on an intermittent basis. Objective - Vital Signs Vital signs: Vital Signs Temp 98.5 F 03/12/24 08:00 Pulse 100 03/12/24 09:02 Resp 16 03/12/24 08:00 BP 152/76 03/12/24 08:00 Pulse Ox 95 03/12/24 08:47 FiO2 Intake & Output 03/11/24 03/12/24 03/12/24 18:59 06:59 18:59 Intake Total 660 Balance 660 Weight 96.162 kg 96 kg Intake: Oral 660 Other: Voiding Method Toilet # Voids 1 - Labs CBC & Chem 7: 03/12/24 05:56 03/12/24 05:56 Labs: Abnormal Lab Results - Last 24 Hours (Table) 03/11/24 03/11/24 03/11/24 Range/Units 04:18 12:57 17:09 RBC (4.30-5.90) m/uL Hgb (13.0-17.5) gm/dL Hct (39.0-53.0) % Lymphocytes # (1.0-4.8) k/uL POC Glucose (mg/dL) 145 H 118 H (70-110) mg/dL Calcium (8.4-10.2) mg/dL HDL Cholesterol 37.50 L (40.00-60.00) mg/dL 03/11/24 03/12/24 03/12/24 Range/Units 20:14 05:56 05:56 RBC 3.14 L (4.30-5.90) m/uL Hgb 10.0 L (13.0-17.5) gm/dL Hct 31.1 L (39.0-53.0) % Lymphocytes # 0.8 L (1.0-4.8) k/uL POC Glucose (mg/dL) 126 H (70-110) mg/dL Calcium 8.1 L (8.4-10.2) mg/dL HDL Cholesterol (40.00-60.00) mg/dL 03/12/24 Range/Units 06:07 RBC (4.30-5.90) m/uL Hgb (13.0-17.5) gm/dL Hct (39.0-53.0) % Lymphocytes # (1.0-4.8) k/uL POC Glucose (mg/dL) 112 H (70-110) mg/dL Calcium (8.4-10.2) mg/dL HDL Cholesterol (40.00-60.00) mg/dL Microbiology - Last 24 Hours (Table) 03/10/24 18:13 Blood Culture - Preliminary Blood
[2024-03-12 10:20] LABS: Chol/HDL Ratio 3.17 Ratio; LDL Cholesterol,Calculated 62.4 mg/dL (0.0-131.0)
--- NOTE | 2024-03-12 10:41 | P.PN ---
[facility]ive [facility] [address] [place], [place] [address] Progress Note - SOAP Patient Name: Benjamin Rodriguez Date of : 1955 Patient Status: Inpatient Attending Provider: Kenneth Chicas Date: 03/11/24 15:17 Initialization Date: 03/11/24 15:17 Subjective Progress Note Date: 03/11/24 Principal diagnosis: encephalopathy 69-year-old male was hospitalized about the hospital for confusion. Question of a baclofen overdose. The patient workup showed pneumonia. Objective - Vital Signs Vital signs: Vital Signs Temp 97.3 F L 03/10/24 19:17 Pulse 117 H 03/11/24 15:16 Resp 18 03/11/24 15:16 BP 132/79 03/11/24 15:16 Pulse Ox 94 L 03/11/24 15:16 FiO2 Intake & Output 03/10/24 03/11/24 03/11/24 18:59 06:59 18:59 Weight 96.162 kg - Constitutional General appearance: Present: no acute distress - Respiratory Respiratory: bilateral: diminished - Cardiovascular Details: Tachycardic - Gastrointestinal General gastrointestinal: Present: normal bowel sounds - Neurologic Neurologic: Present: CNII-XII intact - Musculoskeletal Musculoskeletal: Present: strength equal bilaterally - Psychiatric Psychiatric: Present: A&O x's 3 - Labs CBC & Chem 7: 03/11/24 04:18 03/11/24 04:18 Labs: Abnormal Lab Results - Last 24 Hours (Table) 03/10/24 03/10/24 03/10/24 Range/Units 16:26 16:32 16:38 WBC 15.2 H (3.8-10.6) k/uL RBC 3.47 L (4.30-5.90) m/uL Hgb 11.2 L (13.0-17.5) gm/dL Hct 34.2 L (39.0-53.0) % MCV (80.0-100.0) fL Neutrophils # 12.5 H (1.3-7.7) k/uL Sodium 130 L (137-145) mmol/L Potassium 5.6 H (3.5-5.1) mmol/L BUN 27 H (9-20) mg/dL Creatinine 1.52 H (0.66-1.25) mg/dL Glucose 146 H (74-99) mg/dL POC Glucose (mg/dL) 149 H (70-110) mg/dL Calcium 8.2 L (8.4-10.2) mg/dL Creatine Kinase 38 L (55-170) U/L Total Protein (6.3-8.2) g/dL Albumin (3.5-5.0) g/dL HDL Cholesterol (40.00-60.00) mg/dL 03/11/24 03/11/24 03/11/24 Range/Units 01:32 04:18 04:18 WBC (3.8-10.6) k/uL RBC 2.97 L (4.30-5.90) m/uL Hgb 9.6 L D (13.0-17.5) gm/dL Hct 30.0 L (39.0-53.0) % MCV 101.0 H (80.0-100.0) fL Neutrophils # (1.3-7.7) k/uL Sodium 135 L (137-145) mmol/L Potassium (3.5-5.1) mmol/L BUN 25 H (9-20) mg/dL Creatinine (0.66-1.25) mg/dL Glucose 63 L (74-99) mg/dL POC Glucose (mg/dL) 111 H (70-110) mg/dL Calcium 7.2 L (8.4-10.2) mg/dL Creatine Kinase (55-170) U/L Total Protein 5.5 L (6.3-8.2) g/dL Albumin 2.9 L (3.5-5.0) g/dL HDL Cholesterol 37.50 L (40.00-60.00) mg/dL 03/11/24 03/11/24 Range/Units 08:56 12:57 WBC (3.8-10.6) k/uL RBC (4.30-5.90) m/uL Hgb (13.0-17.5) gm/dL Hct (39.0-53.0) % MCV (80.0-100.0) fL Neutrophils # (1.3-7.7) k/uL Sodium (137-145) mmol/L Potassium (3.5-5.1) mmol/L BUN (9-20) mg/dL Creatinine (0.66-1.25) mg/dL Glucose (74-99) mg/dL POC Glucose (mg/dL) 120 H 145 H (70-110) mg/dL Calcium (8.4-10.2) mg/dL Creatine Kinase (55-170) U/L Total Protein (6.3-8.2) g/dL Albumin (3.5-5.0) g/dL HDL Cholesterol (40.00-60.00) mg/dL Assessment and Plan (1) Pneumonia Current Visit: Yes Status: Acute Code(s): J18.9 - PNEUMONIA, UNSPECIFIED ORGANISM SNOMED Code(s): 866363136 (2) TIA (transient ischemic attack) Current Visit: Yes Status: Acute Code(s): G45.9 - TRANSIENT CEREBRAL I SCHEMIC ATTACK, UNSPECIFIED SNOMED Code(s): 592167781 Plan: Appreciate Pulmonary and Neurology input. Non-contrast MRI has been ordered. Neurology began depending on results of MRI. EEG has also been ordered discussed with pulmonary. Add Legionella antigen. Continue antibiotics 03/12 Patient seen and examined at bedside He had just completed breathing treatment Physical exam demonstrates patient still having decreased inspiratory effort, tightness on inspiration Mucomyst added 3 times daily Discussed case with respiratory therapist was at bedside Continue antibiotics Awaiting MRI, no focal deficits noted Awaiting EEG Objective - Vital Signs Vital signs: Vital Signs Temp 98.5 F 03/12/24 08:00 Pulse 100 03/12/24 09:02 Resp 16 03/12/24 08:00 BP 152/76 03/12/24 08:00 Pulse Ox 95 03/12/24 08:47 FiO2 Intake & Output 03/11/24 03/12/24 03/12/24 18:59 06:59 18:59 Intake Total 660 Balance 660 Weight 96.162 kg 96 kg Intake: Oral 660 Other: Voiding Method Toilet # Voids 1 - Labs CBC & Chem 7: 03/12/24 05:56 03/12/24 05:56 Labs: Abnormal Lab Results - Last 24 Hours (Table) 03/11/24 03/11/24 03/11/24 Range/Units 12:57 17:09 20:14 RBC (4.30-5.90) m/uL Hgb (13.0-17.5) gm/dL Hct (39.0-53.0) % Lymphocytes # (1.0-4.8) k/uL POC Glucose (mg/dL) 145 H 118 H 126 H (70-110) mg/dL Calcium (8.4-10.2) mg/dL HDL Cholesterol (40.00-60.00) mg/dL 03/12/24 03/12/24 03/12/24 Range/Units 05:56 05:56 06:07 RBC 3.14 L (4.30-5.90) m/uL Hgb 10.0 L (13.0-17.5) gm/dL Hct 31.1 L (39.0-53.0) % Lymphocytes # 0.8 L (1.0-4.8) k/uL POC Glucose (mg/dL) 112 H (70-110) mg/dL Calcium 8.1 L (8.4-10.2) mg/dL HDL Cholesterol 39.40 L (40.00-60.00) mg/dL Microbiology - Last 24 Hours (Table) 03/10/24 18:13 Blood Culture - Preliminary Blood
[2024-03-12 12:06] LABS: Glucose,Whole Blood 136 mg/dL (70-110)
--- NOTE | 2024-03-12 15:22 | CA ---
Transthoracic Echo Report Name: Benjamin Rodriguez Age: 69 Gender: M : 1955 Exam Date: 03/12/2024 08:33 Exam Location: [facility] Ht (in): 68 Wt (lb): 212 Ordering Physician: Francie Aquino MD Attending/Referring Phys: Deli Cook Stephanie Nava RDCS Procedure CPT: Indications: Slurred speech, CVA Cardiac Hx: COPD Technical Quality: Poor Contrast 1: Total Dose (mL): Contrast 2: Total Dose (mL): MEASUREMENTS (Male / Female) Normal Values 2D ECHO LV Diastolic Diameter PLAX 4.0 cm 4.2 - 5.9 / 3.9 - 5.3 cm LV Systolic Diameter PLAX 3.8 cm IVS Diastolic Thickness 1.0 cm 0.6 - 1.0 / 0.6 - 0.9 cm LVPW Diastolic Thickness 1.0 cm 0.6 - 1.0 / 0.6 - 0.9 cm LV Relative Wall Thickness 0.5 RV Internal Dim ED PLAX 2.5 cm LV Diastolic Volume MOD 4C 108.3 cm??? LV Systolic Volume MOD 4C 41.9 cm??? LV Ejection Fraction MOD 4C 61.3 % LV Cardiac Index MOD 4C 3350.7 cm???/min???m??? LV Diastolic Length 4C 9.2 cm LV Systolic Length 4C 7.3 cm LV Diastolic Volume MOD 2C 107.3 cm??? LV Systolic Volume MOD 2C 45.2 cm??? LV Ejection Fraction MOD 2C 57.8 % LV Cardiac Index MOD 2C 3131.6 cm???/min???m??? LV Diastolic Length 2C 9.6 cm LV Systolic Length 2C 7.9 cm LA Volume 61.9 cm??? 18 - 58 / 22 - 52 cm??? LA Volume Index 28.4 cm???/m??? 16 - 28 cm???/m??? M-MODE Aortic Root Diameter MM 3.6 cm AV Cusp Separation MM 2.9 cm DOPPLER AV Peak Velocity 175.0 cm/s AV Peak Gradient 12.2 mmHg MV Area PHT 11.4 cm??? Mitral E Point Velocity 104.6 cm/s Mitral A Point Velocity 142.8 cm/s Mitral E to A Ratio 0.7 MV Deceleration Time 66.3 ms TR Peak Velocity 248.3 cm/s TR Peak Gradient 24.7 mmHg Right Ventricular Systolic Press 29.7 mmHg FINDINGS Left Ventricle Left ventricular ejection fraction is estimated at 55-60 %. Left ventricular cavity size normal. Left ventricular wall thickness normal. Normal left ventricular wall motion. Right Ventricle Normal right ventricular size and function.right ventricular systolic pressure within normal limits. Right Atrium Normal right atrial size. No right atrial thrombus or mass seen. Left Atrium Mildly increased left atrial volume. Mildly increased left atrial area. No left atrial thrombus or mass present. Mitral Valve Structurally normal mitral valve. Mitral annular calcification. No evidence for mitral valve prolapse. No mitral stenosis. Aortic Valve Aortic valve not well visualized. Tricuspid Valve Structurally normal tricuspid valve. Trace to mild tricuspid regurgitation. Pulmonic Valve Pulmonic valve not well visualized. No pulmonic regurgitation. Pericardium No pericardial or pleural effusion. Aorta Normal size aortic root and proximal ascending aorta. CONCLUSIONS 1. Normal left ventricular size and systolic function 2. Trace to mild tricuspid regurgitation Previewed by: Dr. Sandrita Olivo MD (Electronically Signed) Final Date: 12 March 2024 15:21
[2024-03-12] MEDS: ACETYLCYSTEINE 800 MG/4 ML VIAL INHALATION SCH (16:22)
[2024-03-12 17:21] LABS: Glucose,Whole Blood 105 mg/dL (70-110)
--- NOTE | 2024-03-12 18:49 | P.PN ---
Subjective Progress Note Date: 03/12/24 Patient is a 69-year-old male with past medical history significant for COPD, lung nodule, heavy past tobacco use, hyperlipidemia, hypertension. Patient presented to the ED yesterday afternoon. He was brought in by EMS and was found to be altered. Apparently, he was going to cloth picker his grand daughter from gymnastics. He got confused and lost, called his , who then called EMS. He may have been slurring his words. Did reportedly become unarousable at some point. Brain CT done on arrival unremarkable for intracranial hemorrhage or mass effect. Brain CTA did not show evidence of dissection or significant stenosis of the carotid bifurcations. There is left proximal internal carotid artery plaquing with up to 50% stenosis. No evidence of intracranial high-grade stenosis or intercranial aneurysm. Incidentally, a right midlung masslike opacity was identified with prominence mediastinal/perihilar lymph nodes, likely reactive. Most recent chest CT was done July, showing a stable left lung pleural-based density. No significant right lung nodules. This is more than l ikely a infectious process. Patient is currently being evaluated in the ED department. He does report productive cough over the last 3 to 4 days. Reports black to brown sputum production. Denies any fevers, chills, chest pain, hemoptysis. States he has been feeling relatively well prior to this. Has been eating and drinking appropriately. No nausea or vomiting or diarrhea. No sick contacts. No recent treatment outpatient for pneumonia. He does have moderate COPD, with an PSZ518% of predicted. Normally utilizes Advair twice daily and Ventolin and on a as needed basis. His COPD has been fairly well-controlled on an outpatient basis. Chest x-ray showing a right midlung airspace opacity consistent with pneumonia. CBC: WBC count 15.2, hemoglobin 11.2, hematocrit 34.2, platelets 348. Most recent BMP: Sodium 135, potassium 4, chloride 106, serum bicarb 25, BUN 25, creatinine 1.22, glucose 63. Lactic 1.2. Normal saline squeezing at 130 mL/h. Negative for influenza, RSV, COVID. He is currently resting comfortably in bed. Alert and oriented. Neruological examination is positive for some flattening of the left nasolabial fold, otherwise non-focal. He denies history of CVA/TIA. No thrombolytics were given in the ED. From a pulmonary standpoint. He is on room air. SpO2 98%. He is in no respiratory distress. Remaining vital signs are stable. Nontoxic appearance. . On 03/12/2024, the patient continues to have some ongoing cough. No significant sputum production. White cell count is 7.8. Hemoglobin is at 10. Electrolytes are all within normal limits. The patient had a negative Legionella urine antigen. The procalcitonin level was 0.26 at time of admission. The patient remains on Rocephin. The patient also had a follow-up CAT scan of the brain done today that showed mild patchy burden of chronic small vessel ischemic changes. No acute intracranial abnormalities. Chronic para sinus disease, and echocardiogram showed a preserved LV function with trace tricuspid regurgitation. No significant valvular abnormalities. Neurology is on the c ase. He remains on room air oxygen. Objective - Vital Signs Vital signs: Vital Signs Temp 98.1 F 03/12/24 11:39 Pulse 105 H 03/12/24 11:39 Resp 16 03/12/24 11:39 BP 166/80 03/12/24 11:39 Pulse Ox 95 03/12/24 11:39 FiO2 Intake & Output 03/11/24 03/12/24 03/12/24 18:59 06:59 18:59 Intake Total 660 Balance 660 Weight 96.162 kg 96 kg Intake: Oral 660 Other: Voiding Method Toilet Toilet # Voids 1 - Exam GENERAL EXAM: Alert, 69-year-old white male, comfortable in no apparent distress. HEAD: Normocephalic and atraumatic EYES: Normal reaction of pupils, equal size. NOSE: Clear with pink turbinates. THROAT: No erythema or exudates. NECK: No masses, no JVD. CHEST: No chest wall deformity. LUNGS: Equal air entry with no crackles, wheeze, rhonchi or dullness. On room air. No conversational dyspnea or accessory muscle use.. CVS: S1 and S2 normal with no audible murmur, regular rhythm. No extra heart sounds ABDOMEN: No hepatosplenomegaly, active bowel sounds, no guarding or rigidity. SPINE: No scoliosis or deformity SKIN: No rashes CENTRAL NERVOUS SYSTEM: Alert and oriented. Flattening of the left nasolabial fold, otherwise no focal deficits. No unilateral extremity weakess, no ataxia, gait assessment deferred. EXTREMITIES: There is no peripheral edema, clubbing, or cyanosis. Peripheral pulses are intact. - Labs CBC & Chem 7: 03/12/24 05:56 03/12/24 05:56 Labs: Abnormal Lab Results - Last 24 Hours (Table) 03/11/24 03/11/24 03/11/24 Range/Units 12:57 17:09 20:14 RBC (4.30-5.90) m/uL Hgb (13.0-17.5) gm/dL Hct (39.0-53.0) % Lymphocytes # (1.0-4.8) k/uL POC Glucose (mg/dL) 145 H 118 H 126 H (70-110) mg/dL Calcium (8.4-10.2) mg/dL HDL Cholesterol (40.00-60.00) mg/dL 03/12/24 03/12/24 03/12/24 Range/Units 05:56 05:56 06:07 RBC 3.14 L (4.30-5.90) m/uL Hgb 10.0 L (13.0-17.5) gm/dL Hct 31.1 L (39.0-53.0) % Lymphocytes # 0.8 L (1.0-4.8) k/uL POC Glucose (mg/dL) 112 H (70-110) mg/dL Calcium 8.1 L (8.4-10.2) mg/dL HDL Cholesterol 39.40 L (40.00-60.00) mg/dL Microbiology - Last 24 Hours (Table) 03/10/24 18:13 Blood Culture - Preliminary Blood Assessment and Plan Assessment: Right lower lobe community-acquired pneumonia, brain CTA showed incidental finding of right midlung masslike opacity with likely reactive mediastinal/perihilar lymph nodes. This was not demonstrated on recent CT done July,, there was a stable left lung pleural-based density. Acute leukocytosis, improving Moderate chronic obstructive pulmonary disease, with a baseline FEV1 57% of predicted. Normally maintained on Advair twice a day and Ventolin as needed rescue inhaler. Former tobacco dependence, reportedly quit smoking over 15 years ago. With over 69-[id number] history Altered mental status, possible CVA/TIA, CAT scan of the brain x 2 has been negative Acute kidney injury, improving History of hypertension History of hyperlipidemia Obesity, with a BMI of 32.2 kg/m Plan: Patient remains on room air oxygen Continue same antibiotic coverage Repeat chest x-ray in the morning Sputum cultures, blood cultures are pending Urine Legionella antigen was negative Check procalcitonin was at 0.2 Negative for influenza, RSV, COVID.n Neurology is consulted Echo is within normal limits
[2024-03-12 20:18] LABS: Glucose,Whole Blood 117 mg/dL (70-110)
--- NOTE | 2024-03-12 21:56 | EEG ---
ELECTROENCEPHALOGRAM REPORT BRIEF HISTORY: A 69-year-old male, who found to develop confusion on the way to visit his granddaughter with slurred speech, and was unarousable with some shaking of his upper extremities. CURRENT MEDICATIONS: 1. Aspirin. 2. Lipitor. 3. Azithromycin. 4. Rocephin. 5. Narcan. 6. Protonix. 7. Zithromax. 8. Heparin. 9. Insulin. 10.Albuterol. CHARACTERIZATION OF RECORD: This 20-minute electroencephalogram was characterized by background rhythm of 10 to 11 Hertz beta rhythm, which was not occipitally dominant, but was mildly reactive to eye opening and eye closure. There were some initial bursts of frontal intermittent rhythmic delta activity noted, which is nonspecific. It can happen in people with older age. Photic stimulation was performed, but did not result in a driving response to any frequency. There were no sleep features visible on this electroencephalogram. Throughout this electroencephalogram, there was no evidence of focal slowing, focal spikes, sharp waves, or rapid epileptiform discharges. CONCLUSION: This is a normal 20-minute electroencephalogram. MMODL / IJN: [id number] /
--- NOTE | 2024-03-13 07:45 | XR ---
2 view chest HISTORY: Follow-up pneumonia. COMPARISON: 03/10/2024 TECHNIQUE: PA and lateral views chest obtained. FINDINGS: There has been significant interval worsening partially consolidative process in the right mid to low er lung zone. There is mild diffuse interstitial opacity in both lungs.. There is no pneumothorax or pleural effusion. The heart size is normal. The osseous structures are intact. IMPRESSION: Interval worsening in the partially consolidative infiltrate in the right lung and diffuse interstiti al process as described above [facility], Workstation: [email or web address] 03/13/2024 7:43 AM
[2024-03-13] MEDS: lisinopriL 20 MG TAB PO SCH (08:30)
[2024-03-13] MEDS: allopurinoL 100 MG TAB PO SCH (11:53)
[2024-03-13] MEDS: AZITHROMYCIN 500 MG in SODIUM CHLORIDE 0.9% 250 ML IVPB SCH (11:53)
--- NOTE | 2024-03-13 12:05 | CT ---
EXAMINATION TYPE: CT angio chest DATE OF EXAM: 03/13/2024 11:32 AM COMPARISON: 03/11/2024. CLINICAL INDICATION: Male, 69 years old with history of Rule out PE; PE shortness of breath. TECHNIQUE/CONTRAST: CTA scan of the thorax is performed without and with IV Contrast, patient injected with 100 ml mL of Isovue 370, MIP images are created and reviewed these are created on a separate workstation.. CT DLP: 513 mGycm, Automated exposure control for dose reduction was used. FINDINGS: Lungs/Pleura: Consolidation changes in the right upper lung along the fissure and partially affecting the middle lobe. This is slightly larger compared to prior 03/03/2024. Airway: Large airways are patent. Heart: Heart is within normal limits for size. Vasculature: There is no evidence for a filling defect within the pulmonary vasculature to suggest ac bk pulmonary embolism. The pulmonary artery is of normal size. Mediastinum: No gross evidence of adenopathy. Musculoskeletal: No acute osseous abnormalities Soft Tissues/lymph nodes: Unremarkable. Lower neck: No significant findings. Upper Abdomen: No significant findings. IMPRESSION: 1. No evidence of pulmonary embolism. 2. Right airspace opacities and consolidation concerning for pneumonia. Short-term follow-up recommen ded to exclude mass. Airspace opacities have slightly increased in size compared to 03/03/2024 [facility], , 03/13/2024 12:03 PM
--- NOTE | 2024-03-13 15:46 | P.PN ---
Subjective Progress Note Date: 03/13/24 Patient is a 69-year-old male with past medical history significant for COPD, lung nodule, heavy past tobacco use, hyperlipidemia, hypertension. Patient presented to the ED yesterday afternoon. He was brought in by EMS and was found to be altered. Apparently, he was going to coal picker his grand daughter from gymnastics. He got confused and lost, called his , who then called EMS. He may have been slurring his words. Did reportedly become unarousable at some point. Brain CT done on arrival unremarkable for intracranial hemorrhage or mass effect. Brain CTA did not show evidence of dissection or significant stenosis of the carotid bifurcations. There is left proximal internal carotid artery plaquing with up to 50% stenosis. No evidence of intracranial high-grade stenosis or intercranial aneurysm. Incidentally, a right midlung masslike opacity was identified with prominence mediastinal/perihilar lymph nodes, likely reactive. Most recent chest CT was done July, showing a stable left lung pleural-based density. No significant right lung nodules. This is more than l ikely a infectious process. Patient is currently being evaluated in the ED department. He does report productive cough over the last 3 to 4 days. Reports black to brown sputum production. Denies any fevers, chills, chest pain, hemoptysis. States he has been feeling relatively well prior to this. Has been eating and drinking appropriately. No nausea or vomiting or diarrhea. No sick contacts. No recent treatment outpatient for pneumonia. He does have moderate COPD, with an INH378% of predicted. Normally utilizes Advair twice daily and Ventolin and on a as needed basis. His COPD has been fairly well-controlled on an outpatient basis. Chest x-ray showing a right midlung airspace opacity consistent with pneumonia. CBC: WBC count 15.2, hemoglobin 11.2, hematocrit 34.2, platelets 348. Most recent BMP: Sodium 135, potassium 4, chloride 106, serum bicarb 25, BUN 25, creatinine 1.22, glucose 63. Lactic 1.2. Normal saline squeezing at 130 mL/h. Negative for influenza, RSV, COVID. He is currently resting comfortably in bed. Alert and oriented. Neruological examination is positive for some flattening of the left nasolabial fold, otherwise non-focal. He denies history of CVA/TIA. No thrombolytics were given in the ED. From a pulmonary standpoint. He is on room air. SpO2 98%. He is in no respiratory distress. Remaining vital signs are stable. Nontoxic appearance. . On 03/12/2024, the patient continues to have some ongoing cough. No significant sputum production. White cell count is 7.8. Hemoglobin is at 10. Electrolytes are all within normal limits. The patient had a negative Legionella urine antigen. The procalcitonin level was 0.26 at time of admission. The patient remains on Rocephin. The patient also had a follow-up CAT scan of the brain done today that showed mild patchy burden of chronic small vessel ischemic changes. No acute intracranial abnormalities. Chronic para sinus disease, and echocardiogram showed a preserved LV function with trace tricuspid regurgitation. No significant valvular abnormalities. Neurology is on the c ase. He remains on room air oxygen. On 03/13/2024, the patient is stable. He remains on room air oxygen. I repeated the CAT scan of the chest and I utilized a CT angiogram protocol. There is no evidence of any pulmonary embolism. There is a right airspace disease opacity and consolidation for which the patient is still on a combination of Rocephin and Zithromax. The white cell count is not elevated. The patient has no other new complaints otherwise for now. No chest pain. Limited cough and congestion. No pleurisy. No hemoptysis. EEG showed no significant abnormalities. Echocardiogram was also within normal limits. Considered the possibility of aspiration as the patient was quite altered mentally prior to him being admitted to the hospital. Objective - Vital Signs Vital signs: Vital Signs Temp 98.1 F 03/13/24 07:22 Pulse 90 03/13/24 12:12 Resp 16 03/13/24 08:35 BP 163/77 03/13/24 07:22 Pulse Ox 94 L 03/13/24 07:37 FiO2 Intake & Output 03/12/24 03/13/24 03/13/24 18:59 06:59 18:59 Intake Total 1800 540 240 Balance 1800 540 240 Intake: Oral 1800 540 240 Other: Voiding Method Toilet Toilet Toilet # Voids 4 # Bowel Movements 1 0 - Exam GENERAL EXAM: Alert, 69-year-old white male, comfortable in no apparent distress. HEAD: Normocephalic and atraumatic EYES: Normal reaction of pupils, equal size. NOSE: Clear with pink turbinates. THROAT: No erythema or exudates. NECK: No masses, no JVD. CHEST: No chest wall deformity. LUNGS: Equal air entry with no crackles, wheeze, rhonchi or dullness. On room air. No conversational dyspnea or accessory muscle use.. CVS: S1 and S2 normal with no audible murmur, regular rhythm. No extra heart sounds ABDOMEN: No hepatosplenomegaly, active bowel sounds, no guarding or rigidity. SPINE: No scoliosis or deformity SKIN: No rashes CENTRAL NERVOUS SYSTEM: Alert and oriented. Flattening of the left nasolabial fold, otherwise no focal deficits. No unilateral extremity weakess, no ataxia, gait assessment deferred. EXTREMITIES: There is no peripheral edema, clubbing, or cyanosis. Peripheral pulses are intact. - Labs CBC & Chem 7: 03/12/24 05:56 03/12/24 05:56 Labs: Abnormal Lab Results - Last 24 Hours (Table) 03/12/24 Range/Units 20:16 POC Glucose (mg/dL) 117 H (70-110) mg/dL Microbiology - Last 24 Hours (Table) 03/10/24 18:13 Blood Culture - Preliminary Blood Assessment and Plan Assessment: Right lower lobe community-acquired pneumonia, brain CTA showed incidental finding of right midlung masslike opacity with likely reactive mediastinal/perihilar lymph nodes. This was not demonstrated on recent CT done July,, there was a stable left lung pleural-based density. Repeat CAT scan of the chest done on 03/13/2024 showed no evidence of any pulm embolism utilizing the PE protocol. The consolidation in the right lower lobe is still present. Rule out aspiration. Acute leukocytosis, improving Moderate chronic obstructive pulmonary disease, with a baseline FEV1 57% of pr edicted. Normally maintained on Advair twice a day and Ventolin as needed rescue inhaler. Former tobacco dependence, reportedly quit smoking over 15 years ago. With over 45-swfz-pyxk history Altered mental status, possible CVA/TIA, CAT scan of the brain x 2 has been negative Acute kidney injury, improving History of hypertension History of hyperlipidemia Obesity, with a BMI of 32.2 kg/m Plan: Patient remains on room air oxygen Continue same antibiotic coverage Repeat chest x-ray in the morning Sputum cultures, blood cultures are pending Urine Legionella antigen was negative Check procalcitonin was at 0.2 Negative for influenza, RSV, COVID.n Neurology is consulted Echo is within normal limits EEG is normal Possible discharge home within next 24 hours to be followed up on outpatient basis regarding the right lower lobe consolidation.
[2024-03-13] MEDS: ACETAMINOPHEN TAB 325 MG TAB PO PRN (16:44)
--- NOTE | 2024-03-13 16:49 | P.PN ---
Subjective Progress Note Date: 03/13/24 (delayed charting seen at 1030) Patient is a 69-year-old male with history of COPD, GERD, hypertension, and gout who was hospitalized after an episode of unresponsiveness with shaking. On arrival was hypotensive with blood pressure of 87/57. Initial laboratory analysis remarkable for white blood cell count of 15.2, sodium 130, potassium 5.6, BUN 27, creatinine 1.52. Initial troponin negative. CT head showed no acute intracranial process. CTA of the head and neck demonstrated left proximal internal carotid stenosis of 50% with right mid lung masslike opacities with prominent lymph node. And chest x-ray demonstrated right midlung airspace opacities concerning for pneumonia. Patient was admitted and started on antibiotics. Pulmonary and neurology were consulted. CT of the chest dem onstrated focal consolidation in the right lower lobe possibly reflecting pneumonia. Echocardiogram demonstrated EF 55 to 60%. Repeat CT brain again demonstrated no acute intracranial abnormality. 20-minute EEG was normal. CT angio of the chest showed no evidence of pulmonary embolism but right airspace opacity and consolidation concerning for pneumonia short-term follow-up recommended to exclude mass. Patient seen and examined at bedside. He has no complaints today. Breathing is much better. Up and walking around. Asking to go home. Vital signs reviewed General: Nontoxic, no distress, appears at stated age Cardiovascular: S1S2 reg, no murmur Lungs: CTA bilateral, no rhonchi, no rales, no accessory muscle use Abdominal: Soft, nontender to palpation, no guarding Ext: No gross muscle atrophy, no edema b/l lower extremities, no contractures Neuro: CN II-XI grossly intact, no focal neuro deficits Psych: Alert, oriented, appropriate affect Assessment/Plan: Right lower lobe community-acquired pneumonia with mass-like opacification Acute exacerbation of chronic obstructive pulmonary disease -Zithromax IV day #4 -Rocephin IV day #4 -DuoNeb 4 times daily and as needed -Mucomyst Altered mental status with possible seizure-like activity and loss of consciousness -Neurology recommendations appreciated. Plan for outpatient follow-up. -No driving until cleared by neurology -EEG negative Hypertension, dyslipidemia, gout -Lisinopril 20 mg daily -Resume allopurinol - Lipitor 80 mg daily Imaging: CTA as reflected above Data Review: None new DVT prophylaxis: Heparin Anticipated discharge date: in AM Anticipated discharge place: Home This dictation was prepared using [employer] voice recognition software. Though every attempt is made to correct errors during dictation some may still exist. Objective - Vital Signs Vital signs: Vital Signs Temp 98.5 F 03/13/24 14:00 Pulse 104 H 03/13/24 15:51 Resp 16 03/13/24 14:00 BP 160/79 03/13/24 14:00 Pulse Ox 95 03/13/24 14:00 FiO2 Intake & Output 03/12/24 03/13/24 03/13/24 18:59 06:59 18:59 Intake Total 8654 187 5989 Output Total 1 Balance 9621 669 3457 Intake: Oral 0480 974 3496 Output: Stool 1 Other: Voiding Method Toilet Toilet Toilet # Voids 4 6 # Bowel Movements 1 0 - Labs CBC & Chem 7: 03/12/24 05:56 03/12/24 05:56 Labs: Abnormal Lab Results - Last 24 Hours (Table) 03/12/24 Range/Units 20:16 POC Glucose (mg/dL) 117 H (70-110) mg/dL Microbiology - Last 24 Hours (Table) 03/10/24 18:13 Blood Culture - Preliminary Blood
[2024-03-14] MEDS: predniSONE 20 MG TAB PO STA (09:14)
[2024-03-14 11:07] LABS: African American GFR (CKD) >90 (>60 ml/min/1.73 sqM); Anion Gap 11 mmol/L; Blood Urea Nitrogen 8 mg/dL (9-20); Calcium 8.5 mg/dL (8.4-10.2); Carbon Dioxide 21 mmol/L (22-30); Chloride 103 mmol/L (98-107); Glucose 163 mg/dL (74-99); Non-African American GFR(CKD) 88 (>60 ml/min/1.73 sqM); Potassium 3.8 mmol/L (3.5-5.1); Sodium 135 mmol/L (137-145)
[2024-03-14 11:42] LABS: HCT 33.6 % (39.0-53.0); HGB 10.7 gm/dL (13.0-17.5); MCH 31.1 pg (25.0-35.0); MCHC 31.8 g/dL (31.0-37.0); MCV 97.6 fL (80.0-100.0); Mean Platelet Volume 7.5; Platelet Count 289 k/uL (150-450); RBC 3.44 m/uL (4.30-5.90); RDW 13.5 % (11.5-15.5); WBC 10.1 k/uL (3.8-10.6)
--- NOTE | 2024-03-14 11:45 | XR ---
EXAMINATION TYPE: XR chest 2V DATE OF EXAM: 03/14/2024 11:34 AM COMPARISON: Chest radiographs from 03/13/2024 CLINICAL INDICATION: Male, 69 years old with history of pneumonia; [facility] TECHNIQUE: XR chest 2V Frontal and lateral views of the chest. FINDINGS: Lungs/Pleura: Similar right midlung consolidation There is no evidence of pleural effusion, left foca l consolidation, or pneumothorax. Pulmonary vascularity: Unremarkable. Heart/mediastinum: Cardiomediastinal silhouette is unremarkable. Musculoskeletal: No acute osseous pathology. IMPRESSION: Right midlung consolidation. Not significantly changed from prior. [facility], , 03/14/2024 11:42 AM
[2024-03-14 13:09] VITALS: BP 152/81; PULSE 98; RESP 16; TEMP 98.2
--- NOTE | 2024-03-14 13:14 | P.DS ---
Providers Date of admission: 03/10/24 18:22 Expected date of discharge: 03/14/24 Attending physician: Kenneth Chicas Consults: 03/10/24 18:31 Consult Physician Routine Consulting Provider: Naren Peraza Consult Reason/Comments: pneumonia Do you want consulting provider notified?: Yes 03/10/24 20:51 Consult Physician Routine Consulting Provider: Jose Dhaliwal Consult Reason/Comments: Strokelike symptoms Do you want consulting provider notified?: Yes, Notify in am Primary care physician: Anthony Lentz Hospital Course: Discharge Diagnosis: Right lower lobe community-acquired pneumonia with mass-like opacification Acute exacerbation of chronic obstructive pulmonary disease Altered mental status with possible seizure-like activity and loss of consciousness Hypertension Dyslipidemia Gout Hospital Course: Patient is a 69-year-old male with history of COPD, GERD, hypertension, and gout who was hospitalized after an episode of unresponsiveness with shaking. On arrival was hypotensive with blood pressure of 87/57. Initial laboratory analysis remarkable for white blood cell count of 15.2, sodium 130, potassium 5.6, BUN 27, creatinine 1.52. Initial troponin negative. CT head showed no acute intracranial process. CTA of the head and neck demonstrated left proximal internal carotid stenosis of 50% with right mid lung masslike opacities with prominent lymph node. And chest x-ray demonstrated right midlung airspace opacities concerning for pneumonia. Patient was admitted and started on antibiotics. Pulmonary and neurology were consulted. CT of the chest demonstrated focal consolidation in the right lower lobe possibly reflecting pneumonia. Echocardiogram demonstrated EF 55 to 60%. Repeat CT brain again demonstrated no acute intracranial abnormality. 20-minute EEG was normal. CT angio of the chest showed no evidence of pulmonary embolism but right airspace opacity and consolidation concerning for pneumonia short-term follow-up recommended to exclude mass. Follow-up: 7 more days of Augmentin, Medrol Dosepak, follow-up with Dr. Hurley in 1 to 2 days, Dr. Whitehead next week, and establish care with Dr. Hare. No driving for 6 months. Patient seen and examined at bedside.Doing well, no shortness breath, wants to go home, and no recurrent symptoms Vital signs reviewed and stable. General: nontoxic, no distress, appears at stated age Cardioavscular: S1S2 reg, no murmur, positive posterior tibial pulse bilateral, Lungs: CTA bilateral, no rhonchi, no rales, no accessory muscle use Abdominal: soft, nontender to palpation, no guarding, no appreciable organomegaly Ext: no gross muscle atrophy, no yvrose b/l lower extremities, no contractures Neuro: CN II-XI grossly intact, no focal neuro deficits Psych: Alert, oriented, appropriate affect A total of 32 minutes of time were spent preparing this complex discharge summary. Patient was discharged on 03/14/24. This dictation was prepared using [employer] voice recognition software. Though every attempt is made to correct errors during dictation some may still exist. Patient Condition at Discharge: Stable Plan - Discharge Summary Discharge Rx Participant: No New Discharge Prescriptions: New Amoxic-Pot Clav 875-125Mg [Augmentin 875-125] 1 tab PO BID 7 Days #14 tab methylPREDNISolone [Medrol Dose Pack] 0 mg PO DIRECTED #1 packet Continue allopurinoL [Zyloprim] 100 mg PO DAILY Isosorbide Mononitrate ER [Imdur] 30 mg PO DAILY lisinopriL [Zestril] 20 mg PO DAILY Fluticasone Propion/Salmeterol [Advair 250-50 Diskus] 1 puff INHALATION RT- BID Atorvastatin [Lipitor] 80 mg PO HS Omeprazole [PriLOSEC] 40 mg PO DAILY PRN PRN Reason: Gi Upset Discontinued Baclofen 10 mg PO BID Discharge Medication List allopurinoL [Zyloprim] 100 mg PO DAILY 11/15/21 [History] Atorvastatin [Lipitor] 80 mg PO HS 03/10/24 [History] Fluticasone Propion/Salmeterol [Advair 250-50 Diskus] 1 puff INHALATION RT-BID 03/10/24 [History] Isosorbide Mononitrate ER [Imdur] 30 mg PO DAILY 03/10/24 [History] Omeprazole [PriLOSEC] 40 mg PO DAILY PRN 03/10/24 [History] lisinopriL [Zestril] 20 mg PO DAILY 03/10/24 [History] Amoxic-Pot Clav 875-125Mg [Augmentin 875-125] 1 tab PO BID 7 Days #14 tab 03/14/24 [Rx] methylPREDNISolone [Medrol Dose Pack] 0 mg PO DIRECTED #1 packet 03/14/24 [Rx] Follow up Appointment(s)/Referral(s): Reynaldo Arechiga MD [REFERRING] - 1 Week Anthony Lentz DO [Primary Care Provider] - 1-2 days Naren Peraza MD [STAFF PHYSICIAN] - 1 Week Activity/Diet/Wound Care/Special Instructions: Activity: as tolerated Diet: Heart Healthy Special Instructions: No driving per [place] Law for 6 months. Discharge Disposition: HOME SELF-CARE
--- NOTE | 2024-03-14 19:52 | P.PN ---
Subjective Progress Note Date: 03/14/24 Patient is a 69-year-old male with past medical history significant for COPD, lung nodule, heavy past tobacco use, hyperlipidemia, hypertension. Patient presented to the ED yesterday afternoon. He was brought in by EMS and was found to be altered. Apparently, he was going to peanut picker his grand daughter from gymnastics. He got confused and lost, called his , who then called EMS. He may have been slurring his words. Did reportedly become unarousable at some point. Brain CT done on arrival unremarkable for intracranial hemorrhage or mass effect. Brain CTA did not show evidence of dissection or significant stenosis of the carotid bifurcations. There is left proximal internal carotid artery plaquing with up to 50% stenosis. No evidence of intracranial high-grade stenosis or intercranial aneurysm. Incidentally, a right midlung masslike opacity was identified with prominence mediastinal/perihilar lymph nodes, likely reactive. Most recent chest CT was done July, showing a stable left lung pleural-based density. No significant right lung nodules. This is more than l ikely a infectious process. Patient is currently being evaluated in the ED department. He does report productive cough over the last 3 to 4 days. Reports black to brown sputum production. Denies any fevers, chills, chest pain, hemoptysis. States he has been feeling relatively well prior to this. Has been eating and drinking appropriately. No nausea or vomiting or diarrhea. No sick contacts. No recent treatment outpatient for pneumonia. He does have moderate COPD, with an GFF036% of predicted. Normally utilizes Advair twice daily and Ventolin and on a as needed basis. His COPD has been fairly well-controlled on an outpatient basis. Chest x-ray showing a right midlung airspace opacity consistent with pneumonia. CBC: WBC count 15.2, hemoglobin 11.2, hematocrit 34.2, platelets 348. Most recent BMP: Sodium 135, potassium 4, chloride 106, serum bicarb 25, BUN 25, creatinine 1.22, glucose 63. Lactic 1.2. Normal saline squeezing at 130 mL/h. Negative for influenza, RSV, COVID. He is currently resting comfortably in bed. Alert and oriented. Neruological examination is positive for some flattening of the left nasolabial fold, otherwise non-focal. He denies history of CVA/TIA. No thrombolytics were given in the ED. From a pulmonary standpoint. He is on room air. SpO2 98%. He is in no respiratory distress. Remaining vital signs are stable. Nontoxic appearance. . On 03/12/2024, the patient continues to have some ongoing cough. No significant sputum production. White cell count is 7.8. Hemoglobin is at 10. Electrolytes are all within normal limits. The patient had a negative Legionella urine antigen. The procalcitonin level was 0.26 at time of admission. The patient remains on Rocephin. The patient also had a follow-up CAT scan of the brain done today that showed mild patchy burden of chronic small vessel ischemic changes. No acute intracranial abnormalities. Chronic para sinus disease, and echocardiogram showed a preserved LV function with trace tricuspid regurgitation. No significant valvular abnormalities. Neurology is on the c ase. He remains on room air oxygen. On 03/13/2024, the patient is stable. He remains on room air oxygen. I repeated the CAT scan of the chest and I utilized a CT angiogram protocol. There is no evidence of any pulmonary embolism. There is a right airspace disease opacity and consolidation for which the patient is still on a combination of Rocephin and Zithromax. The white cell count is not elevated. The patient has no other new complaints otherwise for now. No chest pain. Limited cough and congestion. No pleurisy. No hemoptysis. EEG showed no significant abnormalities. Echocardiogram was also within normal limits. Considered the possibility of aspiration as the patient was quite altered mentally prior to him being admitted to the hospital. On 03/14/24, the patient is doing well and he has no complaints and he has been on RA 02. He has no cough and no sputum and no altered mentation. He has no new complaints,. The FU CXR was done this morning and the patient has a stable consolidation of the right lower lobe. No other significant issues for now and the patient is to be discharged home today. Objective - Vital Signs Vital signs: Vital Signs Temp 99.8 F H 03/14/24 07:23 Pulse 103 H 03/14/24 08:40 Resp 18 03/14/24 08:40 BP 139/82 03/14/24 07:23 Pulse Ox 95 03/14/24 08:10 FiO2 Intake & Output 03/13/24 03/14/2424 18:59 06:59 18:59 Intake Total 2340 240 240 Output Total 1 1 1 Balance 2339 239 239 Intake: Oral 2340 240 240 Output: Stool 1 1 1 Other: Voiding Method Toilet Toilet Toilet # Voids 6 - Exam GENERAL EXAM: Alert, 69-year-old white male, comfortable in no apparent distres s. HEAD: Normocephalic and atraumatic EYES: Normal reaction of pupils, equal size. NOSE: Clear with pink turbinates. THROAT: No erythema or exudates. NECK: No masses, no JVD. CHEST: No chest wall deformity. LUNGS: Equal air entry with no crackles, wheeze, rhonchi or dullness. On room air. No conversational dyspnea or accessory muscle use.. CVS: S1 and S2 normal with no audible murmur, regular rhythm. No extra heart sounds ABDOMEN: No hepatosplenomegaly, active bowel sounds, no guarding or rigidity. SPINE: No scoliosis or deformity SKIN: No rashes CENTRAL NERVOUS SYSTEM: Alert and oriented. Flattening of the left nasolabial fold, otherwise no focal deficits. No unilateral extremity weakess, no ataxia, gait assessment deferred. EXTREMITIES: There is no peripheral edema, clubbing, or cyanosis. Peripheral pulses are intact. - Labs CBC & Chem 7: 03/14/24 10:24 03/14/24 10:24 Labs: Abnormal Lab Results - Last 24 Hours (Table) 03/14/24 Range/Units 10:24 Sodium 135 L (137-145) mmol/L Carbon Dioxide 21 L (22-30) mmol/L BUN 8 L (9-20) mg/dL Glucose 163 H (74-99) mg/dL Microbiology - Last 24 Hours (Table) 03/10/24 18:13 Blood Culture - Preliminary Blood Assessment and Plan Assessment: Right lower lobe community-acquired pneumonia, brain CTA showed incidental finding of right midlung masslike opacity with likely reactive mediastinal/perihilar lymph nodes. This was not demonstrated on recent CT done July,, there was a stable left lung pleural-based density. Repeat CAT scan of the chest done on 03/13/2024 showed no evidence of any pulm embolism utilizing the PE protocol. The consolidation in the right lower lobe is still present. Rule out aspiration. Acute leukocytosis, improving Moderate chronic obstructive pulmonary disease, with a baseline FEV1 57% of predicted. Normally maintained on Advair twice a day and Ventolin as needed rescue inhaler. Former tobacco dependence, reportedly quit smoking over 15 years ago. With over 90-nkeh-qank history Altered mental status, possible CVA/TIA, CAT scan of the brain x 2 has been negative Acute kidney injury, improving History of hypertension History of hyperlipidemia Obesity, with a BMI of 32.2 kg/m Plan: Clinically, the patient is stable. The patient has no new complaints. Follow- up chest x-ray from today shows a stable right lung consolidation. As mentioned, this could be potentially an episode of aspiration. The patient can be discharged home on oral Augmentin to be followed up on outpatient basis within the next 7 to 10 days with a follow-up chest x-ray. The chest x-ray from this morning was noted. Cleared for discharge from pulmonary. Continue Advair. Continue albuterol rescue inhaler as needed. Patient remains on room air oxygen
--- NOTE | 2024-03-16 16:21 | CDI ---
Documentation Clarification Form Date: 03/16/2024 04:02:15 PM From: Laura Camarillo Phone: Admit Date: 03/10/2024 06:22:00 PM Patient Name: Benjamin Rodriguez Visit Number: [id number] Discharge Date: 03/14/2024 01:13:00 PM ATTENTION: The Clinical Documentation Specialists (CDI) and [facility] Coding Staff appreciate your assistance in clarifying documentation. Please respond to the clarification below the line at the bottom and electronically sign. The CDI & [facility] Coding staff will review the response and follow-up if needed. Please note: Queries are made part of the Legal Health Record. If you have any questions, please contact the author of this message via ITS. Doctor/Provider: Naren Peraza There is documentation of Acute Hypoxic respiratory failure in H/P note on 03/10/2024. Additional clarification is requested. History/Risk Factors: Pt is 69-year-old male with a PMH ofhypertension,GERD, hyperlipidemia,COPD(noton home O2)goutpresents withaltered mental status. Clinical Indicators: H/P on 03/10 #Acute hypoxic respiratory failure: Likely secondary to suspectedCAPversus/and potentialbaclofen overdose -WBC 15.2, neutrophils 12.5,viralrespiratory panelnegative On 03/11 consult note -He is currently awake and alert and communicating. Chest x-rayshowed a right lungopacityand based on that the patient underwent aCT scanof the chest that showed a mass like consolidation involving the right lower lobe superior segment which is consistent withpneumonia. Noted the patient's white cell count is only at 9.3.Procalcitonin level is 0.26.Theviralscreen has not been done. BUN is 25 with a creatinine of 1.2.Rest of the electrolytes are all within normal limits. He is currently on room air oxygen with a pulse ox of 96%.He did complain of increasedcoughandcongestionand somechest discomforton the left. He is currently on a combination of Rocephin and Zithromax On 03/14 DS -Right lower lobecommunity-acquired pneumoniawithmass- likeopacification Acute exacerbation of chronic obstructive pulmonary disease Altered mental statuswithpossibleseizure-like activity andloss of consciousness Treatment: Received Zithromax 500 mg IVPB once and Rocephin 1000 mg IVPB once in the ED -Continue Zithromax 500 mg p.o. daily and Rocephin 2 g IVPB every 24 hours for CAPcoverage O2 NC as needed -Continue NS 130 cc/h Can you please clarify Acute Hypoxic Respiratory Failure is present ? [ x] No , Acute Hypoxic Respiratory Failure is not present [ ] Yes , Acute Hypoxic Respiratory Failure is present [ ] Other, please specify [ ] Unable to determine (Template Last Revised: June 2020) MTDD
--- NOTE | 2024-03-18 09:40 | CDI ---
Documentation Clarification Form Date: 03/18/2024 09:04:26 AM From: lOivia Pal RN, CCDS Email: [email or web address] Admit Date: 03/10/2024 06:22:00 PM Patient Name: Benjamin Rodriguez Visit Number: [id number] Discharge Date: 03/14/2024 01:13:00 PM ATTENTION: The Clinical Documentation Specialists (CDI) and [facility] Coding Staff appreciate your assistance in clarifying documentation. Please respond to the clarification below the line at the bottom and electronically sign. The CDI & [facility] Coding staff will review the response and follow-up if needed. Please note: Queries are made part of the Legal Health Record. If you have any questions, please contact the author of this message via ITS. Doctor Dona Beard Encephalopathy is documented in your progress notes. Additional clarification regarding the type of encephalopathy is requested. History/Risk Factors: COPD, GERD and hyperlipidemia. Presents with altered mental status. Admitted with pneumonia Clinical Indicators: 03/11 and 03/12 IM: "encephalopathy." H&P: "Altered mental status/potential overdose." 03/12 Pulmonary: "He was brought in by EMS and was found to be altered." 03/12 Neurology: "I do not believe he has had either a stroke or a seizure and he is likely to be discharged this evening." Discharge summary: "Right lower lobe community-acquired pneumonia. Altered mental status with possible seizure-like activity and loss of consciousness." 03/10 Labs: WBC 15.2 03/12 EEG: normal 03/12 CT/MRI Brain: no acute abnormality Treatment: IV Azithromycin 500mg x1 on 03/10; V Azithromycin 500mg daily 03/13- 03/14; IV Rocephin 1000mg x1 on 03/10; IV Rocephin 2gm Q24H 03/11-03/14; 3L 0.9 NS IV bolus on 03/10; discontinued Baclofen Please clarify the type of encephalopathy, if known: [ ] Metabolic Encephalopathy [ ] Toxic Encephalopathy [ ] Other, please specify [ ] Unable to determine MTDD
== END 2024-03-14 13:13 | disposition home or self-care (01) | DRG 194 ==
LOC: EC 16:03 → 3SCARD 18:22 → 5NMEDONC 03-12 11:13
PROVIDERS: ADMIT Student in an Organized Health Care Education/Training Program; ATTEND Student in an Organized Health Care Education/Training Program
DX: J18.9 Pneumonia, unspecified organism (principal); E87.1 Hypo-osmolality and hyponatremia; J44.0 Chronic obstructive pulmonary disease with (acute) lower respiratory infection; J44.1 Chronic obstructive pulmonary disease with (acute) exacerbation; N17.9 Acute kidney failure, unspecified; G93.40 Encephalopathy, unspecified; E78.5 Hyperlipidemia, unspecified; M10.9 Gout, unspecified; K21.9 Gastro-esophageal reflux disease without esophagitis; I95.9 Hypotension, unspecified; E66.9 Obesity, unspecified; I65.22 Occlusion and stenosis of left carotid artery; E87.5 Hyperkalemia; N18.9 Chronic kidney disease, unspecified; I12.9 Hypertensive chronic kidney disease with stage 1 through stage 4 chronic kidney disease, or unspecified chronic kidney disease; Z68.32 Body mass index [BMI] 32.0-32.9, adult; Z87.891 Personal history of nicotine dependence; Z96.651 Presence of right artificial knee joint
CPT/HCPCS: 36415; 70450; 70496; 70498; 71045; 71046; 71260; 71275; 80048; 80053; 80061; 80306; 82550; 83036; 83605; 84145; 84484; 85025; 85027; 85610; 85730; 87040; 87449; 87636; 93005; 93306; 94640; 94760; 95816; 96361; 96365; 96366; 96372; 96375; 99291

== ENCOUNTER 2024-06-20 14:15 | Emergency (ER) | payer MEDICARE ==
[2024-06-20 14:20] VITALS: RESP 18; TEMP 97.7
[2024-06-20 14:43] LABS: Basophils % (A) 1 %; Eosinophils # (A) 0.6 k/uL (0-0.7); Eosinophils % (A) 7 %; HGB 14.4 gm/dL (13.0-17.5); Lymphocytes % (A) 12 %; MCH 31.7 pg (25.0-35.0); Mean Platelet Volume 7.6; Monocytes # (A) 0.6 k/uL (0-1.0); Monocytes % (A) 7 %; Neutrophils # (A) 5.9 k/uL (1.3-7.7); Neutrophils % (A) 70 %; Platelet Count 258 k/uL (150-450); RBC 4.55 m/uL (4.30-5.90); RDW 13.5 % (11.5-15.5); WBC 8.4 k/uL (3.8-10.6)
[2024-06-20 14:57] LABS: ALT 59 U/L (4-49); AST 33 U/L (17-59); African American GFR (CKD) 82 (>60 ml/min/1.73 sqM); Albumin 4.5 g/dL (3.5-5.0); Alkaline Phosphatase 161 U/L (38-126); Anion Gap 12 mmol/L; Blood Urea Nitrogen 31 mg/dL (9-20); Calcium 9.7 mg/dL (8.4-10.2); Carbon Dioxide 27 mmol/L (22-30); Chloride 99 mmol/L (98-107); Glucose 118 mg/dL (74-99); Magnesium 1.9 mg/dL (1.6-2.3); Non-African American GFR(CKD) 71 (>60 ml/min/1.73 sqM); Sodium 138 mmol/L (137-145); Total Bilirubin 0.7 mg/dL (0.2-1.3); Total Protein 7.7 g/dL (6.3-8.2)
[2024-06-20 15:01] LABS: Partial Thromboplastin Time 22.7 sec (22.0-30.0); Prothrombin Time 10.7 sec (10.0-12.5)
--- NOTE | 2024-06-20 15:01 | XR ---
EXAMINATION TYPE: XR chest 2V DATE OF EXAM: 06/20/2024 2:49 PM COMPARISON: Multiple prior chest radiographs, most recently dated 03/26/2024. CLINICAL INDICATION: Male, 69 years old with history of Chest Pain. left rib pain, states lateral rib fx; [facility] TECHNIQUE: XR chest 2V Frontal and lateral views of the chest. FINDINGS: Lungs/Pleura: There is no evidence of pleural effusion, focal consolidation, or pneumothorax. Pulmonary vascularity: Unremarkable. Heart/mediastinum: Cardiomediastinal silhouette is unremarkable. Musculoskeletal: Acute displaced fractures of the left fourth-seventh lateral ribs. Other findings: None IMPRESSION: 1. No acute cardiopulmonary disease/process. 2. Mildly displaced acute left lateral rib fractures as above. [facility], , 06/20/2024 2:58 PM
[2024-06-20] MEDS: SODIUM CHLORIDE 0.9% 1,000 ML IV STA (15:04)
[2024-06-20] MEDS: KETOROLAC 15 MG/ML 1 ML VIAL IVP STA (15:05)
[2024-06-20] MEDS: HYDROcodone/APAP 5-325MG 1 EACH TAB PO STA (15:06)
[2024-06-20] MEDS: LIDOCAINE 4% PATCH TOPICAL ONE (15:07)
[2024-06-20 15:53] VITALS: BP 158/99; PULSE 80
[2024-06-20] MEDS: ACET/COD 300 MG/30 MG STARTER PACK 6 TAB BTL PO STA (15:54)
--- NOTE | 2024-06-20 15:58 | ED ---
General Adult HPI - General Chief complaint: Chest Pain Stated complaint: chest pain Time Seen by Provider: 06/20/24 14:29 Source: patient, RN notes reviewed, old records reviewed Mode of arrival: ambulatory Limitations: no limitations - History of Present Illness Initial comments: Patient is a 69-year-old male presents emergency department complaining of chest wall pain. States he broke his ribs 1 week ago on the left side after running into a tractor. Has been having left-sided rib pain. Ran out of his Tylenol 3 was prescribed by urgent care. States that last night and early this morning has been having worsening pain and had some left-sided more anterior chest pain at approximately 9 or 10 AM this morning that radiated from the fractured ribs in the lateral aspect. States he also has tightness and pulling sensation when he lifts his left arm from the area where the ribs are broken. Denies any shortness of breath. States pain with deep inspiration. Denies any nausea or vomiting or abdominal pain. No other acute complaints. No cardiac history. History of hypertension hyperlipidemia. Presents for further evaluation at this time. - Related Data Home Medications Medication Instructions Recorded Confirmed allopurinoL [Zyloprim] 100 mg PO DAILY 11/15/21 03/10/24 Atorvastatin [Lipitor] 80 mg PO HS 03/10/24 03/10/24 Fluticasone Propion/Salmeterol 1 puff INHALATION RT-BID 03/10/24 03/10/24 [Advair 250-50 Diskus] Isosorbide Mononitrate ER [Imdur] 30 mg PO DAILY 03/10/24 03/10/24 Omeprazole [PriLOSEC] 40 mg PO DAILY PRN 03/10/24 03/10/24 lisinopriL [Zestril] 20 mg PO DAILY 03/10/24 03/10/24 Previous Rx's Medication Instructions Recorded Amoxic-Pot Clav 875-125Mg 1 tab PO BID 7 Days #14 tab 03/14/24 [Augmentin 875-125] methylPREDNISolone [Medrol Dose 0 mg PO DIRECTED #1 packet 03/14/24 Pack] Cyclobenzaprine [Flexeril] 5 mg PO TID PRN 7 Days #21 tablet 06/20/24 HYDROcodone/APAP 5-325MG [[place] 1 tab PO Q4HR PRN 3 Days #18 tab 06/20/24 5-325] Lidocaine 4% Patch 1 patch TOPICAL DAILY PRN 14 Days 06/20/24 #14 patch Allergies Allergy/AdvReac Type Severity Reaction Status Date / Time No Known Allergies Allergy Verified 03/10/24 17:48 Review of Systems ROS Statement: Those systems with pertinent positive or pertinent negative responses have been documented in the HPI. Review of Systems: CONST: Denies fever EYES: Denies blurry vision ENT: Denies nasal congestion C/V: Denies Chest pain RESP: Denies shortness of breath GI: Denies abdominal pain : Denies dysuria SKIN: Denies rash. MSK: Endorses chest wall pain NEURO: Denies headache ROS Other: All systems not noted in ROS Statement are negative. Past Medical History Past Medical History: COPD, GERD/Reflux, Hypertension Additional Past Medical History / Comment(s): GOUT, History of Any Multi-Drug Resistant Organisms: None Reported Past Surgical History: Joint Replacement, Orthopedic Surgery Additional Past Surgical History / Comment(s): RIGHT KNEE ARTHROSCOPIC, RIGHT KNEE ARTHROTOMY, RT TKA Past Anesthesia/Blood Transfusion Reactions: No Reported Reaction Past Psychological History: No Psychological Hx Reported Smoking Status: Former smoker Past Alcohol Use History: Occasional Past Drug Use History: None Reported - Past Family History Mother Family Medical History: Cancer Father Family Medical History: Cancer General Exam - General Exam Comments Initial Comments: General: Appears in no acute distress. HEAD: Normal with no signs of head trauma. EYES: EOMI ENT: Hearing grossly intact, normal oropharynx. RESPIRATORY: Clear breath sounds bilaterally. No wheezes, rales, or rhonchi. C/V: Regular rate and rhythm. S1 and S2 auscultated, no edema, peripheral pulses 2+ and intact throughout. Chest wall pain on palpation. ABD: Abd is soft, nontender, nondistended EXT: Normal range of motion of the extremities. Tenderness palpation of the left lateral ribs with no obvious deformities palpated. No evidence of flail chest. SKIN: No rashes or lesions observed on exposed skin. NEURO: Alert and oriented x 4. Limitations: no limitations Course Vital Signs 06/20/24 14:16 Temperature 97.7 F Pulse Rate 88 Respiratory 18 Rate Blood Pressure 156/73 O2 Sat by Pulse 93 L Oximetry Medical Decision Making - Medical Decision Making Was pt. sent in by a medical professional or institution (Dr., PA, ACCOUNTING INSTRUCTOR, urgent care, hospital, or [facility]...) When possible be specific @ -No Did you speak to anyone other than the patient for history (EMS, parent, family, police, friend...)? What history was obtained from this source @ -No Did you review nursing and triage notes (agree or disagree)? Why? @ -I reviewed and agree with nursing and triage notes Were old charts reviewed (outside hosp., previous admission, EMS record, old EKG, old radiological studies, urgent care reports/EKG's, [facility] records)? Report findings @ -No old charts were reviewed Differential Diagnosis (chest pain, altered mental status, abdominal pain women, abdominal pain men, vaginal bleeding, weakness, fever, dyspnea, syncope, headache, dizziness, GI bleed, back pain, seizure, CVA, palpatations, mental health, musculoskeletal)? @ -Chest wall pain, rib fracture, pneumothorax, pneumonia, ACS. This list is not all inclusive. EKG interpreted by me (3pts min.). @ -As above X-rays interpreted by me (1pt min.). @ -Chest x-ray shows the 4 minimally displaced left lateral rib fractures. No evidence of pneumothorax or other injury. CT interpreted by me (1pt min.). @ -None done U/S interpreted by me (1pt. min.). @ -None done What testing was considered but not performed or refused? (CT, X-rays, U/S, labs)? Why? @ -None What meds were considered but not given or refused? Why? @ -None Did you discuss the management of the patient with other professionals (professionals i.e. SILVER Le, ACCOUNTING INSTRUCTOR, lab, RT, psych nurse, social media specialist, custom frame assembler, teacher, coastal/harbor defense officer, field nurse case manager)? Give summary @ -No Was smoking cessation discussed for >3mins.? @ -No Was critical care preformed (if so, how long)? @ -No Were there social determinants of health that impacted care today? How? (Homelessness, low income, unemployed, alcoholism, drug addiction, transportation, low edu. Level, literacy, decrease access to med. care, residential, rehab)? @ -No Was there de-escalation of care discussed even if they declined (Discuss DNR or withdrawal of care, Hospice)? DNR status @ -No What co-morbidities impacted this encounter? (DM, HTN, Smoking, COPD, CAD, Cancer, CVA, ARF, Chemo, Hep., AIDS, mental health diagnosis, sleep apnea, morbid obesity)? @ -None Was patient admitted / discharged? Hospital course, mention meds given and route, prescriptions, significant lab abnormalities, going to OR and other rust ne info. @ -Patient presents for chest wall pain. He is worried it might be his heart but also concerned that could be related to his rib fractures. He is out of pain medications at home. Fractured his ribs 1 week ago after running into a tractor. We obtain cardiopulmonary workup. Patient will be administered IV analgesia medications, as well as a [place], and 1 L fluid bolus. Patient was in agreement this plan. Vitals within acceptable limits. Chest x-ray shows the rib fractures 4 through 7 laterally. Laboratory studies returned unremarkable. EKG shows no signs of acute ischemia. On reevaluation, patient is feeling improved. We discussed his results. He will be discharged home at this time. Recommended follow-up with his PCP in the next 1 to 3 days. He will be discharged home with pain medications as well as an incentive spirometer. I instructed the patient to follow up with their PCP in the next 1-3 days.. I explained that the patient should return to the emergency department if they experience any worsening symptoms. Strict return precautions were discussed with the patient. The patient expressed understanding of these instructions. I answered all questions that the patient had. The patient was discharged home in good condition with their prescriptions and follow up information. Undiagnosed new problem with uncertain prognosis? @ -No Drug Therapy requiring intensive monitoring for toxicity (Heparin, Nitro, Insulin, Cardizem)? @ -No Were any procedures done? @ -No Diagnosis/symptom? @ -Rib fractures, chest wall pain Acute, or Chronic, or Acute on Chronic? @ -Acute Uncomplicated (without systemic symptoms) or Complicated (systemic symptoms)? @ -Uncomplicated Side effects of treatment? @ -No Exacerbation, Progression, or Severe Exacerbation? @ -No Poses a threat to life or bodily function? How? (Chest pain, [place], [place], pneumonia, PE, COPD, DKA, ARF, appy, cholecystitis, CVA, Diverticulitis, Homicidal, Suicidal, threat to staff... and all critical care pts) @ -Unlikely at this time - Lab Data Result diagrams: 06/20/24 14:38 06/20/24 14:38 Lab Results 06/20/24 06/20/24 06/20/24 Range/Units 14:38 14:38 14:38 WBC 8.4 (3.8-10.6) k/uL RBC 4.55 (4.30-5.90) m/uL Hgb 14.4 (13.0-17.5) gm/dL Hct 45.0 (39.0-53.0) % MCV 99.0 (80.0-100.0) fL MCH 31.7 (25.0-35.0) pg MCHC 32.0 (31.0-37.0) g/dL RDW 13.5 (11.5-15.5) % Plt Count 258 (150-450) k/uL MPV 7.6 Neutrophils % 70 % Lymphocytes % 12 % Monocytes % 7 % Eosinophils % 7 % Basophils % 1 % Neutrophils # 5.9 (1.3-7.7) k/uL Lymphocytes # 1.0 (1.0-4.8) k/uL Monocytes # 0.6 (0-1.0) k/uL Eosinophils # 0.6 (0-0.7) k/uL Basophils # 0.0 (0-0.2) k/uL PT 10.7 (10.0-12.5) sec INR 1.0 (<1.2) APTT 22.7 (22.0-30.0) sec Sodium 138 (137-145) mmol/L Potassium 5.0 (3.5-5.1) mmol/L Chloride 99 (98-107) mmol/L Carbon Dioxide 27 (22-30) mmol/L Anion Gap 12 mmol/L BUN 31 H (9-20) mg/dL Creatinine 1.07 (0.66-1.25) mg/dL Est GFR (CKD-EPI)AfAm 82 (>60 ml/min/1.73 sqM) Est GFR (CKD-EPI)NonAf 71 (>60 ml/min/1.73 sqM) Glucose 118 H (74-99) mg/dL Calcium 9.7 (8.4-10.2) mg/dL Magnesium 1.9 (1.6-2.3) mg/dL Total Bilirubin 0.7 (0.2-1.3) mg/dL AST 33 (17-59) U/L ALT 59 H (4-49) U/L Alkaline Phosphatase 161 H (38-126) U/L Troponin I (0.000-0.034) ng/mL Total Protein 7.7 (6.3-8.2) g/dL Albumin 4.5 (3.5-5.0) g/dL 06/20/24 Range/Units 14:38 WBC (3.8-10.6) k/uL RBC (4.30-5.90) m/uL Hgb (13.0-17.5) gm/dL Hct (39.0-53.0) % MCV (80.0-100.0) fL MCH (25.0-35.0) pg MCHC (31.0-37.0) g/dL RDW (11.5-15.5) % Plt Count (150-450) k/uL MPV Neutrophils % % Lymphocytes % % Monocytes % % Eosinophils % % Basophils % % Neutrophils # (1.3-7.7) k/uL Lymphocytes # (1.0-4.8) k/uL Monocytes # (0-1.0) k/uL Eosinophils # (0-0.7) k/uL Basophils # (0-0.2) k/uL PT (10.0-12.5) sec INR (<1.2) APTT (22.0-30.0) sec Sodium (137-145) mmol/L Potassium (3.5-5.1) mmol/L Chloride (98-107) mmol/L Carbon Dioxide (22-30) mmol/L Anion Gap mmol/L BUN (9-20) mg/dL Creatinine (0.66-1.25) mg/dL Est GFR (CKD-EPI)AfAm (>60 ml/min/1.73 sqM) Est GFR (CKD-EPI)NonAf (>60 ml/min/1.73 sqM) Glucose (74-99) mg/dL Calcium (8.4-10.2) mg/dL Magnesium (1.6-2.3) mg/dL Total Bilirubin (0.2-1.3) mg/dL AST (17-59) U/L ALT (4-49) U/L Alkaline Phosphatase (38-126) U/L Troponin I <0.012 (0.000-0.034) ng/mL Total Protein (6.3-8.2) g/dL Albumin (3.5-5.0) g/dL - EKG Data -: EKG Interpreted by Me EKG Comments: 12-lead Electrocardiogram Interpretation Note EKG was reviewed and interpreted by myself. 12-lead ECG performed at 1431 is interpreted by me as revealing normal sinus rhythm at a rate of 91 beats per minute. [place] is normal OR interval is 183 ms, QRS duration is 94 ms, QTc is 3 to 95 ms.. There were no ST or T wave abnormalities to suggest myocardial ischemia or injury. R wave progression across the precordium was satisfactory. By my interpretation this EKG is non-diagnostic for acute ischemia. Disposition Clinical Impression: Ribs, multiple fractures, Chest wall pain Disposition: HOME SELF-CARE Condition: Good Instructions (If sedation given, give patient instructions): Rib Fracture (ED) Prescriptions: Cyclobenzaprine [Flexeril] 5 mg PO TID PRN 7 Days #21 tablet PRN Reason: Pain Lidocaine 4% Patch 1 patch TOPICAL DAILY PRN 14 Days #14 patch PRN Reason: Pain HYDROcodone/APAP 5-325MG [[place] 5-325] 1 tab PO Q4HR PRN 3 Days #18 tab PRN Reason: Pain Is patient prescribed a controlled substance at d/c from ED?: No Referrals: Anthony Lentz DO [Primary Care Provider] - 1-2 days Time of Disposition: 15:55
[2024-06-20] MEDS: DEXAMETHASONE SOD PHOSPHATE 4 MG/ML 1 ML VIAL IVP STA (16:18)
== END 2024-06-20 16:23 | disposition home or self-care (01) ==
LOC: EC 14:15
DX: S22.42XA Multiple fractures of ribs, left side, initial encounter for closed fracture (principal); R07.89 Other chest pain; Z87.891 Personal history of nicotine dependence; V84.7XXA Person on outside of special agricultural vehicle injured in nontraffic accident, initial encounter
CPT/HCPCS: 36415; 80053; 83735; 84484; 85025; 85610; 85730; 71046; 99285; 96374; 96375; 96361; J1100; J1885